=== PATIENT | female | born 2000 | race Caucasian/White ===

== ENCOUNTER 2024-04-14 17:40 | Emergency (ER) | payer OTHER, SELFPAY ==
[2024-04-14 17:54] VITALS: BP 119/61; PULSE 87; RESP 16; TEMP 36.6; O2SAT 100
--- NOTE | 2024-04-14 18:08 | ED.URI ---
HPI - URI/Sore Throat General Chief Complaint: Upper Respiratory Infection Stated Complaint: strep Time Seen by Provider: 04/14/24 17:46 History of Present Illness HPI Narrative: Patient presents with a sore throat. Fatigue and body aches no fever no cough no shortness of breath no chest pain no trouble swallowing no drooling. Related Data Allergies Allergy/AdvReac Type Severity Reaction Status Date / Time amoxicillin Allergy Swelling Verified 04/14/24 18:11 of Lip/Tongue/Throat Review of Systems Review of Systems: CONSTITUTIONAL: Denies chills, or sweats. Reports fever and generalized body aches EYES: Denies visual changes, redness, or discharge. ENT: Denies otalgia. Reports nasal congestion runny nose and sore throat CARDIOVASCULAR: Denies chest pain, palpitations, or edema. RESPIRATORY: Denies dyspnea. Reports occasional cough GASTROINTESTINAL: Denies abdominal pain, nausea, vomiting, or diarrhea. GENITOURINARY: Denies dysuria or hematuria. SKIN: Denies rash or itching. MUSCULOSKELETAL: Denies back pain, joint pain, or myalgia. Reports generalized body aches NEUROLOGIC: Denies headache, numbness, or weakness. PSYCHIATRIC: Denies anxiety or depression. PMFSH Comments At time of signature, agree with nursing past medical, surgical, social and family history. There is no relevant family history pertinent to the presenting complaint Exam Narrative: The patient is a well-developed, well-nourished in no acute distress. SKIN: Skin is warm and dry without erythema, swelling or exudate. There is good turgor. No tenting. HEAD: Atraumatic. Normocephalic. No temporal or scalp tenderness. EYES: Moist and bright. Sclera and conjunctivae normal. No discharge. PERRLA. Extraocular motions intact. Gross visual acuity intact. EARS: Pinna is normal shape and contour. Clear external auditory canals. TM pearly luis with good cone of light, no erythema or suppuration. Bilateral cerumen noted no gross hearing deficit. NOSE: pink, moist mucosa with good air movement. Clear rhinorrhea without nasal flaring. Septum midline. Mouth: moist mucous membranes. THROAT; mild erythema noted to posterior oropharynx with moderate postnasal drainage. With exudate no ulceration.. Uvula midline. Normal movement of soft palate. NECK: Supple and nontender with full range of motion without discomfort. No meningeal signs. LUNGS: Equal and bilateral breath sounds without wheezes, rales or rhonchi. CHEST: The chest wall is without retractions or use of accessory muscles. HEART: Has a regular rate and rhythm without murmur, gallops, click or rub. ABDOMEN: Soft, nontender with positive active bowel sounds. No rebound tenderness. EXTREMITIES: Without cyanosis, clubbing or edema. Equal 2+ distal pulses and 2 second capillary refill noted. NEUROLOGIC: alert, active, . The patient moves all extremities with normal muscle strength. Normal muscle tone is noted. Normal coordination is noted. NO focal neurological findings noted. Course Course Level of Care: Express Care Visit Vital Signs Vital signs: Vital Signs Temperature 36.6 C 04/14/24 17:54 Pulse Rate 87 04/14/24 17:54 Respiratory Rate 16 04/14/24 17:54 Blood Pressure 119/61 04/14/24 17:54 Pulse Oximetry 100 04/14/24 17:54 Temperature 36.6 C 04/14/24 17:54 Pulse Rate 87 04/14/24 17:54 Respiratory Rate 16 04/14/24 17:54 Blood Pressure 119/61 04/14/24 17:54 Pulse Oximetry 100 04/14/24 17:54 Discharge Plan Discharge Clinical Impression: Pharyngitis, Exudative pharyngitis Patient Disposition: Home, Self-Care Condition: Stable Instructions: Antibiotic Form, Tonsillitis (ED) Additional Instructions: Increase fluids especially juices and water Skax-cal-[id number] cough and cold medicine of your choice for your symptoms Salt water gargles, throat lozenges or throat sprays as desired change toothbrush in 3-5 days Antibiotic as directed--finished the medication It may take the antibiotic 2-3 days to control the fever/symptoms -If you have any worsening of symptoms or any other concerns please go to the ED immediately. Prescriptions: New dexamethasone 4 mg tablet 8 mg PO ONCE Qty: 2 0RF cephalexin 500 mg tablet 500 mg PO Q12H 10 Days Qty: 20 0RF Follow-up/Referrals: Sharhiar,Carola Garcia APN [Primary Care Provider] - Stand Alone Forms: Work/School Release IP
[2024-04-14 18:10] VITALS: BP 119/61; PULSE 87; RESP 16; TEMP 36.6; O2SAT 100
[2024-04-14 18:18] LABS: EDSTREPNEGPOS1 Negative (Negative)
== END 2024-04-14 18:21 | disposition home or self-care (01) ==
PROVIDERS: Emergency Provider Nurse Practitioner Family; PCP Nurse Practitioner Family
DX: J02.9 Acute pharyngitis, unspecified (principal)
CPT/HCPCS: 87081; 87880; 99203; G0463

== ENCOUNTER 2024-09-21 09:01 | Emergency (ER) | payer OTHER, SELFPAY ==
--- OUTSIDE RECORDS SUMMARY | 2024-09-21 09:04 | XMS_ITS | Clinical Summary ---
Author Organization [facility] Address [address] [place] [address] Phone Care Team Providers Care Steward Dishwasher Name Role Phone Provider, None Primary Care Provider Unavailabl e Allergies Active Allergy Reactions Criticality Noted Date Comments Amoxicillin Vomiting 09/04/2017 Penicillins Swelling 09/19/2019 Medications ondansetron (ZOFRAN) 4 MG Tablet Take 1 Tab by mouth every 8 hours as needed for Nausea. 10 Tab 7 Active HYDROcodone-raven taminophen (NORCO) 5-325 MG Tablet Take 1-2 Tabs by mouth every 4 hours as needed for Pain. 20 Tab 8 Active ibuprofen (MOTRIN) 600 MG Tablet Take 1 Tab by mouth every 8 hours as needed for Mild or more severe pain. 20 Tab 9 Active cyclobenzaprine (FLEXERIL) 10 MG Tablet Take 0.5 Tabs by mouth 3 times daily as needed for Muscle spasms. 10 Tab 9 Active albuterol 108 (90 Base) MCG/ACT Aerosol Solution take 2 Puffs by inhalation every 4 hours as needed for Cough. 1 Inhaler 9 Active ketorolac (TORADOL) 10 MG Tablet Take 1 Tab by mouth every 6 hours as needed for Moderate or more severe pain. 20 Tab 0 Active Social History Tobacco Use Types Packs/Day Years Used Date Smoking Tobacco: Never Smokeless Tobacco: Never Alcohol Use Standard Drinks/Week Comments No 0 (1 standard drink = 0.6 oz pur e alcohol) Comments No Sex and Gender Information Value Date Recorded Sex Assigned at Not on file Legal Sex Female 9:45 PM CDT Gender Identity Not on file Sexual Orientation Not on file Last Filed Vital Signs Vital Sign Reading Time Taken Comments Blood Pressure 125/98 09/19/2019 8:52 AM CDT Pulse 97 09/19/2019 10:02 AM CDT Temperature 36.2 C (97.2 F) 09/19/2019 10:02 AM CDT Respiratory Rate 18 09/19/2019 8:50 AM CDT Oxygen Saturation 100% 09/19/2019 8:50 AM CDT Inhaled Oxygen Concentration - - Weight 59 kg (130 lb) 09/19/2019 8:50 AM CDT Height 165.1 cm (5' 5 ) 09/19/2019 8:50 AM CDT Body Mass Index 21.63 09/19/2019 8:50 AM CDT Plan of Treatment Health Maintenance Due Date Last Done Comments Hepatitis C Virus (HCV) Screening 1999 Influenza Immunization (#1) 2024 10/0 06/2012, 02/23/2012, 03/25/2011, Additional history exists SARS-COV-2 Immunization ( season) 2024 Respiratory Syncytial Virus (RSV) Immunization (Adult) (1 - 1-dose 75+ series) 08/09/2074 Hepatitis B Immunization Completed 000, 1999, 1999 Pneumococcal Immunization Combined Aged Out 12/12/2000, 09/30/2000 No longer eligibl e based on patient's age to complete this topic DTaP/Tdap/Td Immunization Discontinued 2010, 11/19/2004, 12/12/2000, Additional history exists TdaP Immunization Completed 01/25/2011 Meningococcal Immunization (ACWY) Aged Out 02/11/2011 No longer eligible based on patient's age to complete this topic Human Papillomavirus (HPV) Immunization Completed 07/05/2013, 04/27/2011, 02/11/2011 Rotavirus Immunization Aged Out No lo nger eligible based on patient's age to complete this topic Insurance [facility] [place] [place] [id number] [place] [address] Care Teams Steward Dishwasher Relationship Specialty Start Date End Date Provider, None MS PCP - General 07/13/18
--- OUTSIDE RECORDS SUMMARY | 2024-09-21 09:05 | XMS_ITS | Data Portability ---
Author Organization [facility] GABINOAntonio Address [address] [place] [address] Care Team Providers [employer] Name Role Phone ELIZABETH, CAROLA Primary Care Provider Assessment No assessment recorded. Plan of Treatment Reminders Order Date Submit Date Provider Last Modified By Organization Details Last Modified Time Details Appointments None recorded . Lab influenz a virus A + B + SARS-CoV -2 (COVID19 ) Ag panel, rapid IA, upper respirat ory specimen 2023 024 In-Office Order, Internal Use Only DO Not Attach Compendium DO Not Attach Compendium, Do Not Delete/merge, [id number] 4 12:31:10 TSH, ultra-se nsitive, serum 2023 024 HERRERA Dinero, [address], [address], [place], [address], 4 03:08:35 CMP, serum or plasma 2023 024 HERRERA Dinero, [address], [address], [place], [address], 4 03:08:38 lipid panel, serum 2023 024 HERRERA Dinero, [address], [address], [place], [address], 4 03:08:36 CBC 2023 024 HERRERA Dinero, [address], [address], [place], [address], 4 03:08:39 vitamin B12 + folate, serum or blood 2023 024 [facility], [address] [facility], [address], [place], [address], 4 03:08:36 iron + total iron-bin ding capacity (TIBC), serum 2023 024 [facility], [address] [facility], [facility] [address], [place], [address], 4 03:08:37 ferritin , serum or plasma 2023 024 [facility], [address] [facility], [facility] [address], [place], [address], 4 03:08:39 inflamma tion panel, serum or plasma 2023 024 [facility], [address] [facility], [facility] [address], [place], [address], 4 03:08:33 ESR (erythro cyte sediment ation rate), blood 2023 024 [facility], [address] [facility], [facility] [address], [place], [address], 4 03:08:40 HIV 1 + 2, meaningf ul use set 2023 024 [facility], [address] [facility], [facility], [place], [address], 4 03:08:41 Referral otolaryn gologist referral 2022 023 [email or web address] Kim Douglas DO, 4 [facility] , [address], [address], [place], [address], 4 09:54:47 Procedures None recorded . Surgeries None recorded . Imaging None recorded . Medication Orders Bactrim DS 800 mg-160 mg tablet 2023 024 [facility], [address] [place] [address], [address], 4 15:56:05 ibuprofe n 800 mg tablet [address] [facility], [address] [place] [address], [address], 4 09:02:38 triamcin olone acetonid e 0.5 % topical cream 2023 024 [facility], [address] [place] [address], [address], 4 15:27:08 doxycycl ine hyclate 100 mg capsule 2023 024 [facility], [address] [place] [address], [address], 4 16:07:18 Zithroma x Z-Koffi 250 mg tablet 2023 024 [email or web address] [facility], [address] [place] [address], [address], 4 15:26:35 ibuprofe n 800 mg tablet 2022 023 [facility], [address] [place] [address], [address], 3 15:20:47 doxycycl ine hyclate 100 mg capsule 2022 023 [email or web address] [facility], [address] [place] [address], [address], 4 16:07:07 fluticas one propiona te 50 mcg/actu ation nasal spray,quach spension [address] [facility] [address] [facility], [address] [place] [address], [address], 16:40:54 Patient TargetsNo targets recorded. Patient Instructions Encounter Date Encounter Id Patient Instructions Last Modified By Organization Details Last Modified Time 03/10/2023 [id number] A healthy lifestyle: care instructions Not available 03/10/2023 15:20:36 chronic sinusitis: care instructions Not available 03/10/2023 15:20:36 Take all antibiotics prescribed to you. If any fever or increase in pain, call/return to office. Not available 03/10/2023 15:09:28 f/u 6 months Not available 10/2022 15:09:28 10/13/2023 [id number] chronic sinusitis: care instructions Not available 10/13/2023 17:05:01 Take all antibiotics prescribed to you. If any fever or increase in pain, call/return to office. Not available 10/13/2023 17:04:31 schedule annual exam Not available 10/13/2023 17:04:27 10/25/2023 [id number] A healthy lifestyle: care instructions Not available 10/25/2023 16:25:36 learning about vaping Not available 10/25/2023 16:25:36 Increase intake of fresh fruits, and vegetables. Avoid packaged foods and fast foods. Follow a low salt diet, drink at least 8-10 8oz glasses of water a day, exercise most days of the week. Take all medications as prescribed. Keep appointments with PCP and all specialists. Not available 10/26/2023 09:03:32 follow up as needed, yearly to keep established with provider Not available 10/26/2023 09:03:37 11/28/2023 [id number] upper respirator y infection (cold): care instructions Not available 11/28/2023 12:31:10 Mucinex and othe r OTC cold/cough remedies are fine to take, increase fluids and have good handwashing. Get plenty of rest. Not available 11/28/2023 12:31:21 follow up as needed Not available 11/28/2023 12:31:15 04/02/2024 [id number] Take all antibiotics prescribed to you. If any fever or increase in pain, call/return to office. Not available 04/02/2024 15:57:36 follow up as needed Not available 04/02/2024 15:57:42 Reason for Referral [employer] Referral fo r Chronic sinusitis Referring Physician: Carola Elizabeth, Family Medicine, Encounter Date: 03/10/2023 Results Created Date Observation Date Name Description Value Unit Range Abnormal Flag Note LastModifiedBy Organization Detail LastModifiedTime 10/25/1910/25/2023 LIPID PANEL cholesterol, total 118 mg/dL 100-19 9 Not Available [facility] Department [address] [place], [address], 10/26/2023 03:08:36 10/25/1910/25/2023 LIPID PANEL triglyceride s 80 mg/dL 0-149 Not Available [facility] [address] [place], [address], 10/26/2023 03:08:36 10/25/19 24 10/25/2023 LIPID PANEL HDL cholesterol 39 mg/dL 40-999 below low normal Not Available [facility] Department [address] [place], [address], 10/26/2023 03:08:36 10/25/19 24 10/25/2023 LIPID PANEL VLDL cholesterol alyssia 16 mg/dL 5-40 Not Available [facility] Department [address] [place], [address], 10/26/2023 03:08:36 10/25/19 24 10/25/2023 LIPID PANEL LDL chol calc ([facility]) 73 mg/dL 0-99 Not Available [facility] Department [address] [place], [address], 10/26/2023 03:08:36 10/25/19 24 10/25/2023 COMP. METAB OLIC PANEL (14) glucose 109 mg/dL 70-99 above high normal Not Available [facility] Department [address] [place] [address], [address], 10/26/2023 03:08:38 10/25/19 24 10/25/2023 COMP. METAB OLIC PANEL (14) BUN 13 mg/dL 6-20 Not Available [facility] Department [address] [place] [address], [address], 10/26/2023 03:08:38 10/25/19 24 10/25/2023 COMP. METAB OLIC PANEL (14) creatinine 0.79 mg/dL 0.76-1 .27 Not Available [facility] Department [address] [place] [address], [address], 10/26/2023 03:08:38 10/25/19 24 10/25/2023 COMP. METAB OLIC PANEL (14) eGFR 107 >=60 Units for eGFR value s are mL/mi n/1.7 3 The eGFR Calcu latio n has not been valid ated for patie nts under the age of 18. If test resul ts are displ ayed for a patie nt under the age of 18, disre connie that value . Not Available [facility] Department [address] [place] [address], [address], 10/26/2023 03:08:38 10/25/19 24 10/25/2023 COMP. METAB OLIC PANEL (14) BUN/creatini ne ratio 16 9-23 Not Available [facility] Department [address] [place], [address], 10/26/2023 03:08:38 10/25/19 24 10/25/2023 COMP. METAB OLIC PANEL (14) sodium 140 mmol/ L 134-14 4 Not Available [facility] Department [address] [place] [address], [address], 10/26/2023 03:08:38 10/25/19 24 10/25/2023 COMP. METAB OLIC PANEL (14) potassium 4.3 mmol/ L 3.5-5. 2 Not Available [facility] Department [address] [place] [address], [address], 10/26/2023 03:08:38 10/25/19 24 10/25/2023 COMP. METAB OLIC PANEL (14) chloride 101 mmol/ L 96-106 Not Available [facility] Department [address] [place] [address], [address], 10/26/2023 03:08:38 10/25/19 24 10/25/2023 COMP. METAB OLIC PANEL (14) carbon dioxide, total 24 mmol/ L 20-29 Not Available [facility] Department [address] [place] [address], [address], 10/26/2023 03:08:38 10/25/19 24 10/25/2023 COMP. METAB OLIC PANEL (14) calcium 9.9 mg/dL 8.7-10 .2 Not Available [facility] Department [address] [place] [address], [address], 10/26/2023 03:08:38 10/25/19 24 10/25/2023 COMP. METAB OLIC PANEL (14) protein, total 7.6 g/dL 6.0-8. 5 Not Available [facility] Department [address] [place] [address], [address], 10/26/2023 03:08:38 10/25/19 24 10/25/2023 COMP. METAB OLIC PANEL (14) albumin 4.8 g/dL 4.0-5. 0 Not Available [facility] Department [address] [place] [address], [address], 10/26/2023 03:08:38 10/25/19 24 10/25/2023 COMP. METAB OLIC PANEL (14) globulin, total 2.8 g/dL 1.5-4. 5 Not Available [facility] Department [address] [place] [address] [place], [address], 10/26/2023 03:08:38 10/25/19 24 10/25/2023 COMP. METAB OLIC PANEL (14) A/G ratio 2.0 1.2-2. 2 Not Available [facility] Department [address] [place] [address], [address], 10/26/2023 03:08:38 10/25/19 24 10/25/2023 COMP. METAB OLIC PANEL (14) bilirubin, total 0.7 mg/dL 0.0-1. 2 Not Available [facility] Department [address] [place] [address], [address], 10/26/2023 03:08:38 10/25/19 24 10/25/2023 COMP. METAB OLIC PANEL (14) alkaline phosphatase 67 IU/L 44-121 Not Available [facility] Department [address] [place] [address], [address], 10/26/2023 03:08:38 10/25/19 24 10/25/2023 COMP. METAB OLIC PANEL (14) AST (SGOT) 11 IU/L 0-40 Not Available [facility] Department [address] [place] [address], [address], 10/26/2023 03:08:38 10/25/19 24 10/25/2023 COMP. METAB OLIC PANEL (14) ALT (SGPT) 8 IU/L 0-32 Not Available [facility] Department [address] [place] [address], [address], 10/26/2023 03:08:38 10/25/19 24 10/25/2023 CBC, NO DIFFE RENTI AL/PL ATELE T WBC 8.4 x10e3 /uL 3.4-10 .8 Not Available [facility] Department [address] [place] [address], [address], 10/26/2023 03:08:39 10/25/19 24 10/25/2023 CBC, NO DIFFE RENTI AL/PL ATELE T RBC 4.53 x10e6 /uL 3.77-5 .28 Not Available [facility] Department [address] [place], [address], 10/26/2023 03:08:39 10/25/19 24 10/25/2023 CBC, NO DIFFE RENTI AL/PL ATELE T hemoglobin 14.8 g/dL 11.1-1 5.9 Not Available [facility] Department [address] [place], [address], 10/26/2023 03:08:39 10/25/19 24 10/25/2023 CBC, NO DIFFE RENTI AL/PL ATELE T hematocrit 44.1 % 34.0-4 6.6 Not Available [facility] Department [address] [place], [address], 10/26/2023 03:08:39 10/25/19 24 10/25/2023 CBC, NO DIFFE RENTI AL/PL ATELE T MCV 97 fL 79-97 Not Available [facility] Department [address] [place], [address], 10/26/2023 03:08:39 10/25/19 24 10/25/2023 CBC, NO DIFFE RENTI AL/PL ATELE T MCH 32.7 pg 26.6-3 3.0 Not Available [facility] Department [address] [place], [address], 10/26/2023 03:08:39 10/25/19 24 10/25/2023 CBC, NO DIFFE RENTI AL/PL ATELE T MCHC 33.6 g/dL 31.5-3 5.7 Not Available [facility] Department [address] [place], [address], 10/26/2023 03:08:39 10/25/19 24 10/25/2023 CBC, NO DIFFE RENTI AL/PL ATELE T RDW 11.9 % 11.5-1 4.5 Not Available [facility] Department [address] [place], [address], 10/26/2023 03:08:39 10/25/19 24 10/25/2023 CBC, NO DIFFE RENTI AL/PL ATELE T NRBC 0 % 0-0 Not Available [facility] Department [address] [place], [address], 10/26/2023 03:08:39 10/25/19 24 10/26/2023 CARRIE W/REF IRIS+R F QN+CR P+CCP (... CARRIE direct NEGATI VE negati ve Not Available [facility] ([facility]) [address] [place], [address], 11/04/2023 03:08:33 10/25/19 24 10/26/2023 CARRIE W/REF IRIS+R F QN+CR P+CCP (... rheumatoid factor (rf) <10.0 IU/mL <14.0 Not Available [facility] ([facility]) [address] [place], [address], 11/04/2023 03:08:33 10/25/19 24 10/26/2023 CARRIE W/REF IRIS+R F QN+CR P+CCP (... C-reactive protein, quant 2 mg/L 0-10 Not Available [facility] ([facility]) [address] [place], [address], 11/04/2023 03:08:33 10/25/19 24 10/26/2023 CARRIE W/REF IRIS+R F QN+CR P+CCP (... anti-ccp Ab, IgG/IgA 5 units 0-19 Negat camron <20 Weak posit camron 20 - 39 Moder ate posit camron 40 - 59 Stron g posit camron >59 Not Available [facility] ([facility]) [address] [place], [address], 11/04/2023 03:08:33 10/25/19 24 11/03/2023 CARRIE W/REF IRIS+R F QN+CR P+CCP (... hla-B27 NEGATI VE HLA-B *27 Negat camron B27 allel e inter preta tion for all loci based on IMGT/ HLA datab ase versi on . 0 This test was devel oped and its perfo rmanc e maurice cteri stics deter mined by [facility]. It has not been clear ed or appro jefferson by the Food and Drug Admin istra tion. [facility] CLIA ID Sara galindo [id number] This test was perfo rmed using Polym erase Chain React ion (PCR) and Seque nce Speci fic Oligo nucle otide Probe s (SSOP ) techn ique. Seque nce Based Typin g (SBT) may be used as a suppl ement al jayyo d when neces zaire. If you have quest ions, pleas e call HLA custo michelle servi ce at [phone] or email at [facility] [email or web address]. Not Available [facility] ([facility]) [address] [facility], [place], [address], 11/04/2023 03:08:33 10/25/19 24 10/26/2023 TSH RFX ON ABNOR MAL TO FREE T4 TSH 1.040 uIU/m L 0.450- 4.500 Not Available [facility] ([facility]) [address] [facility], [place], [address], 11/04/2023 03:08:35 10/25/19 24 10/26/2023 VITAM IN B12 AND FOLAT E vitamin B12 554 pg/mL 232-12 45 Not Available [facility] ([facility]) [address] [facility], [place], [address], 11/04/2023 03:08:36 10/25/19 24 10/26/2023 VITAM IN B12 AND FOLAT E folate (folic acid), serum 17.2 NG/mL >3.0 A serum folat e gómez ntrat ion of less than 3.1 ng/mL is consi dered to repre sent clini alyssia defic iency . Not Available [facility] ([facility]) [address] [place], [address], 11/04/2023 03:08:36 10/25/19 24 10/26/2023 IRON AND TIBC iron bind.cap.(TI BC) 355 ug/dL 250-45 0 Not Available [facility] ([facility]) [address] [place], [address], 11/04/2023 03:08:37 10/25/19 24 10/26/2023 IRON AND TIBC UIBC 258 ug/dL 131-42 5 Not Available [facility] ([facility]) [address] [place], [address], 11/04/2023 03:08:37 10/25/19 24 10/26/2023 IRON AND TIBC iron 97 ug/dL 27-159 Not Available [facility] ([facility]) [address] [place], [address], 11/04/2023 03:08:37 10/25/19 24 10/26/2023 IRON AND TIBC iron saturation 27 % 15-55 Not Available [facility] ([facility]) [address] [place], [address], 11/04/2023 03:08:37 10/25/19 24 10/26/2023 MAC TIN ferritin 75 NG/mL 15-150 Not Available [facility] ([facility]) [address] [place], [address], 11/04/2023 03:08:39 10/25/19 24 10/26/2023 SEDIM ENTAT ION RATE- WESTE RGREN sedimentatio n rate-westerg rodrigo 5 mm/HR 0-32 Not Available [facility] ([facility]) [address] [facility], [place], [address], 11/04/2023 03:08:40 10/25/1910/27/2023 HIV AB/P2 4 AG WITH REFLE X HIV Ab/P24 Ag screen Non Reacti ve nonrea ctive HIV Negat camron HIV-1 /HIV- 2 antib odies and HIV-1 p24 antig en were NOT detec irvin. There is no labor atory evide nce of HIV infec tion. Not Available [facility] ([facility]) [address] [facility], [place], [address], 11/04/2023 03:08:41 11/28/1911/28/2023 influ sarah virus A + B + SARS- CoV-2 (COVI D19) Ag panel , rapid IA, upper respi rator y speci men Flu A negati ve Not Available In-Office Order Internal Use Only DO Not Attach Compendium DO Not Attach Compendium, Do Not Delete/merge, [id number] 11/28/2023 12:21:46 11/28/19 24 11/28/2023 influ sarah virus A + B + SARS- CoV-2 (COVI D19) Ag panel , rapid IA, upper respi rator y speci men Flu B negati ve Not Available In-Office Order Internal Use Only DO Not Attach Compendium DO Not Attach Compendium, Do Not Delete/merge, [id number] 11/28/2023 12:21:46 11/28/19 24 11/28/2023 influ sarah virus A + B + SARS- CoV-2 (COVI D19) Ag panel , rapid IA, upper respi rator y speci men Rapid SARS CoV 2 Ag, QL IA, respiratory specimen negati ve Not Available In-Office Order Internal Use Only DO Not Attach Compendium DO Not Attach Compendium, Do Not Delete/merge, [id number] 11/28/2023 12:21:46 Result Notes None recorded. Problems Name Problem SNOMED Code Status Onset Date Resolution Date Notes Provider Name and Address Organization Details Recorded Time Irritable bowel syndrome characteriz ed by alternating bowel habit 341637079 Active 2021 Carola Elizabeth APN, FNP-C Attn: Mallory rajani,[address] [facility], [place], [place], [address] [place] [address] 2, [facility] 2 10:35:40 Electronic cigarette user 325889253 Active 2021 Carola Elizabeth APN LABORATORY TESTER-C Attn: Mallory rajani,[address] [facility], [place], [place], [address] [place] [address] 2, [facility] - [facility] 2 10:35:41 Dysfunction of eustachian tube 29573161 Active 2021 Carola Elizabeth APN LABORATORY TESTER-C Attn: Mallory rajani,[address] [facility], [place], [address] [place] [address] 2, [facility] 2 10:43:43 History of migraine 741909964 Active 2021 Carola Elizabeth APN, FNP-C Attn: Mallory gerard,[address] [facility], [place], [address] [place] [address] 2, [facility] 2 17:39:36 Atopic dermatitis 88584325 Active 2022 Carola Elizabeth APN, FNP-C Attn: Mallory rajani,[address] [facility], [place], [address] [place] [address] 2, [facility] 3 16:21:56 Gastroenter itis 94708794 Completed 10/15/2021 Carola Elizabeth APN, FNP-C Attn: Mallory rajani,[address] [facility], [place], [address] [place] [address] 2, [facility] - [facility] 2 10:27:51 Otitis media 52910286 Completed 10/15/2021 Carola Elizabeth APN, FNP-C Attn: Mallory rajani,[address] [facility], [place], [address] [place] [address] 2, [facility] - [facility] 2 10:27:36 Abdominal pain 34301884 Completed 10/15/2021 Carola Elizabeth APN, FNP-C Attn: Mallory gerard,[address] [facility], [place], [address], [place] - [facility] 2 10:27:48 Acute sinusitis 11130147 Completed 10/15/2021 Carola Elizabeth APN, FNP-C Attn: Mallory g,[address] [facility], [place], [address], [place] - [facility] 2 10:27:41 Asthmatic bronchitis 735142101 Completed 10/15/2021 Carola Elizabeth APN, FNP-C Attn: Accountin g,[address] [facility], [place], [address], [place] [facility] 2 10:27:58 Dermatophyt osis 68114537 Completed 10/15/2021 Carola Elizabeth APN, FNP-C Attn: Accountin g,[address] [facility], [place], [address], [place] - [facility] 2 10:27:33 Problem Notes None recorded. Medical Equipment None Reported. Allergies Allergen ID Allergen Name Allergen Category Reaction Reaction Severity Criticality Documentation Date Start Date Code Code System Note Provider Name and Address Organization Details Recorded Time 566288 amoxicill in medicatio n hives moderate Not available 10/15/2021 723 RxNorm Not Available Not Available Not Available 996599 Product containin g penicilli n (product) medicatio n hives moderate Not available 10/15/2021 62219 8001 SNOMED Not Available Not Available Not Available 382100 cephalexi n medicatio n hives moderate Not available 07/13/20222022 2231 RxNorm diarr hea and emesi s Not Available Not Available Not Available Medications Name Sig Start Date Stop Date Status Note LastModified by Organization Details LastModified Time amoxicilli n 500 mg capsule Take 2 capsules twice a day by oral route with meals for 10 days. 10/15 completed Not Available Not Available Not Available Aviane 0.1 mg-20 mcg tablet TAKE 1 TABLET BY MOUTH ONCE DAILY 07/08 completed Not Available Not Available Not Available doxycyclin e hyclate 100 mg capsule Take 1 capsule twice a day by oral route for 7 days. 10/244 completed Not Available Not Available Not Available clindamyci n HCl 300 mg capsule TAKE 1 CAPSULE BY MOUTH THREE TIMES DAILY FOR 10 DAYS 10/12 completed Not Available Not Available Not Available triamcinol one acetonide 0.5 % topical cream APPLY A THIN LAYER TO THE AFFECTED AREA(S) BY TOPICAL ROUTE 2 TIMES PER DAY 04/02 completed Not Available Not Available Not Available Tinactin 1 % topical cream Apply by topical route to ring worm 2x daily 1m. 04/30 completed Not Available Not Available Not Available azithromyc in 250 mg tablet TAKE 2 TABLETS BY MOUTH ON DAY 1, AND THEN TAKE 1 TABLET BY MOUTH ONCE A DAY ON DAY 2 THROUGH DAY 5 04/02 completed Not Available Not Available Not Available ibuprofen 800 mg tablet Take 1 tablet 3 times a day by oral route as needed. 2023 active Not Available Not Available Not Avai lable Lidocaine Viscous 2 % mucosal solution 10/15 completed Not Available Not Available Not Available sulfametho xazole 400 mg-trimeth oprim 80 mg tablet Take 2 tablets twice a day by oral route with meals for 10 days. active Not Available Not Available No t Available sumatripta n 100 mg tablet take by mouth one tablet at onset of headache , may repeat in 2 hours if headache not resolved 03/10 completed Not Available Not Available Not Available ondansetro n HCl 8 mg tablet Take 1 tablet every 8 hours by oral route as needed. 07/08 completed Not Available Not Available Not Available prednisone 20 mg tablet 07/08 completed Not Available Not Available Not Available terconazol e 0.8 % vaginal cream INSERT 1 APPLICAT ORFUL AT BEDTIME FOR THREE NIGHTS 10/12 completed Not Available Not Available Not Available sumatripta n 50 mg tablet take by mouth one tablet at onset of headache , may repeat in 2 hours if headache not resolved 03/10 completed Not Available Not Available Not Available metronidaz ole 500 mg tablet TAKE 1 TABLET BY MOUTH THREE TIMES DAILY FOR 20 DOSES 03/10 completed Not Available Not Available Not Available tretinoin 0.05 % topical cream APPLY TOPICALL Y NIGHTLY DIRECTED 04/02 completed Not Available Not Available Not Available valacyclov ir 500 mg tablet TAKE 1 TABLET BY MOUTH ONCE DAILY 10/12 completed Not taking Not Available Not Available Not Available triamcinol one acetonide 0.1 % topical cream active Not Available Not Available Not Available ketorolac 10 mg tablet TAKE 1 TABLET BY MOUTH EVERY 6 HOURS NEEDED FOR PAIN 03/10 completed prn Not Available Not Available Not Available amitriptyl ine 10 mg tablet active Not Available Not Available Not Available doxycyclin e monohydrat e 100 mg capsule active Not Available Not Available Not Available cephalexin 500 mg capsule Take 1 capsule twice a day by oral route for 10 days. active Not Available Not Available No t Available ranitidine 150 mg tablet Take 1 tablet twice a day by oral route with meals for 30 days. active Not Available Not Available No t Available dexamethas one 4 mg tablet active Not Available Not Available Not Available ibuprofen 400 mg tablet active Not Available Not Available Not Available mupirocin 2 % topical ointment active Not Available Not Available Not Available methylpred nisolone 4 mg tablets in a dose pack TAKE BY MOUTH DIRECTED ON INSIDE OF PACKAGE 04/02 completed Not Available Not Available Not Available albuterol sulfate HFA 90 mcg/actuat ion aerosol inhaler INHALE 1 TO 2 PUFFS BY MOUTH EVERY 4 TO 6 HOURS NEEDED. RINSE MOUTH OUT AFTER USE. 03/10 completed Not Available Not Available Not Available Naprosyn 500 mg tablet take 1 tab q 8-10 hr prn for bad headache 10/15 completed Not Available Not Available Not Available ondansetro n 4 mg disintegra ting tablet DISSOLVE 1 TABLET ON THE TONGUE UP TO THREE TIMES DAILY NEEDED FOR NAUSEA 10/15 completed Not Available Not Available Not Available cefdinir 300 mg capsule TAKE 1 CAPSULE BY MOUTH TWICE DAILY FOR 6 DAYS 03/10 completed Not Available Not Available Not Available fluticason e propionate 50 mcg/actuat ion nasal spray,susp ension USE 1 SPRAY(S) IN EACH NOSTRIL TWICE DAILY 10/12 completed Not Available Not Available Not Available doxycyclin e hyclate 100 mg tablet 10/15 completed Not Available Not Available Not Available dicyclomin e 10 mg capsule Take 1 capsule 3 times a day by oral route as needed. 03/10 completed Not Available Not Available Not Available amoxicilli n 500 mg-potassi um clavulanat e 125 mg tablet 10/15 completed Not Available Not Available Not Available neomycin 3.5 mg/g-polym yxin B 10,000 unit/g-dex ameth 0.1 % eye oint 10/15 completed Not Available Not Available Not Available neomycin-p olymyxin-h ydrocort 3.5 mg-10,000 unit/mL-1 % ear drops,susp INSTILL 4 DROPS INTO AFFECTED EAR(S) BY OTIC ROUTE 3 TIMES PER DAY x 7 days 10/12 completed Not using Not Available Not Available Not Available Bactrim DS 800 mg-160 mg tablet Take 1 tablet every 12 hours by oral route for 7 days. 2023 active Not Available Not Available Not Avai lable Mononessa (28) 0.25 mg-35 mcg tablet active Not Available Not Available Not Available azelaic acid 15 % topical gel WASH AND PAT DRY AFFECTED AREA OF SKIN. GENTLY AND THOROUGH LY MASSAGE A THIN FILM TWICE DAILY TO AFFECTED AREA IN THE MORNING AND EVENING 10/12 completed Not Available Not Available Not Available Lo Loestrin Fe 1 mg-10 mcg (24)/10 mcg (2) tablet active Not Available Not Available Not Available Vitals Date Recorded Body height Body mass index (BMI) Body weight Oxygen saturation Oxygen saturation in Arterial blood by Pulse oximetry Heart rate Respiratory rate Body temperature Systolic blood pressure Diastolic blood pressure Provider Name and Address Organization Details Last Updated DateTime 3 163.83 cm 26.2 kg/m2 02324.8 2 g 98 % 98 % 98 /min 16 /min 98.5 [degF] 110 mm[Hg] 68 mm[Hg] Madisyn Waldron [facility] 3 15:00:32 Date Recorded Body height Body mass index (BMI) Body weight Oxygen saturation Oxygen saturation in Arterial blood by Pulse oximetry Heart rate Respiratory rate Body temperature Systolic blood pressure Diastolic blood pressure Provider Name and Address Organization Details Last Updated DateTime 4 163.83 cm 25.4 kg/m2 62299.2 1 g 98 % 98 % 88 /min 16 /min 98.7 [degF] 107 mm[Hg] 74 mm[Hg] Amanda Grigsby MA [facility] 4 16:35:51 Date Recorded Body height Body mass index (BMI) Body weight Oxygen saturation Oxygen saturation in Arterial blood by Pulse oximetry Respiratory rate Body temperature Heart rate Systolic blood pressure Diastolic blood pressure Provider Name and Address Organization Details Last Updated DateTime 4 163.83 cm 25.8 kg/m2 54506.5 5 g 97 % 97 % 16 /min 98.2 [degF] 90 /min 106 mm[Hg] 73 mm[Hg] Amanda Grigsby MA [facility] 4 16:09:00 Date Recorded Body height Body mass index (BMI) Body weight Oxygen saturation Oxygen saturation in Arterial blood by Pulse oximetry Respiratory rate Body temperature Heart rate Systolic blood pressure Diastolic blood pressure Provider Name and Address Organization Details Last Updated DateTime 4 163.83 cm 25.7 kg/m2 13478.0 4 g 98 % 98 % 16 /min 98.6 [degF] 64 /min 102 mm[Hg] 72 mm[Hg] NOEMI Gloria [facility] 4 12:13:36 Date Recorded Body height Body mass index (BMI) Body weight Oxygen saturation Oxygen saturation in Arterial blood by Pulse oximetry Respiratory rate Body temperature Heart rate Systolic blood pressure Diastolic blood pressure Provider Name and Address Organization Details Last Updated DateTime 4 163.83 cm 26.9 kg/m2 39840.1 9 g 98 % 98 % 16 /min 97.5 [degF] 82 /min 114 mm[Hg] 76 mm[Hg] NOEMI Gloria [facility] 4 15:29:09 Social History Question Answer Notes LastModified by Organizat ion Details LastModified Time Tobacco Smoking Status Never Smoker Kiki Clemens MA [facility], [facility] 09/11/2014 16:13:33 What Is Your Level Of Alcohol Consumption? Occasional Information not available 10/15/2021 Are You Blind Or Do You Have Difficulty Seeing? No Information not available 10/15/2021 What Is Your Level Of Caffeine Consumption? Moderate [email or web address] Information not available 07/08/2022 What Type Of Vault Cashier Do You Use? None Information not available 09/11/2014 In The 14 Days Before Symptom Onset, Have You Had Close Contact With A Laboratory-confi rmed COVID-19 While That Case Was Ill? No [email or web address] Information not available 10/15/2021 In The 14 Days Before Symptom Onset, Have You Had Close Contact With A Person Who Is Under Investigation For COVID-19 While That Person Was Ill? No [email or web address] Information not available 10/15/2021 Have You Been To An Area Known To Be High Risk For COVID-19? No [email or web address] Information not available 10/15/2021 Are You Currently Employed? Yes [email or web address] Information not available 10/15/2021 Are You Deaf Or Do You Have Serious Difficulty Hearing? No [email or web address] Information not available 10/15/2021 What Type Of Diet Are You Following? REGULAR Information not available 09/11/2014 Do You Or Have You Ever Used E-cigarettes Or Vape? Current User Of Electronic Cigarettes Information not available 10/15/2021 What Is Your Occupation? [employer] [email or web address] Information not available 10/15/2021 Are There Any Guns Present In Your Home? No Information not available 09/11/2014 What Is Your Home Situation? Father Dad [email or web address] Information not available 07/17/2015 Do You Use Insect Repellent Routinely? Yes Information not available 09/11/2014 Car Seat Type Or Seat Belt? Seat Belt Information not available 09/11/2014 Parent Involvement? Mom Not Involved Mother [email or web address] Information not available 07/17/2015 Riding In Car Front Seat? Yes Information not available 09/11/2014 What Was The Date Of Your Most Recent Tobacco Screening? 04/02/2024 Information not available 04/02/2024 How Many Children Do You Have? 0 [email or web address] Information not available 10/15/2021 What Is Your Parents' Marital Status? Unmarried [email or web address] Information not available 07/17/2015 Pool Exposure No [email or web address] Informatio n not available 02/25/2015 What Is Your Relationship Status? Single Information not available 10/15/2021 What Is The Name Of Your School? Home Schooled [email or web address] Information not available 02/25/2015 Do You Use Your Seat Belt Or Car Seat Routinely? Yes [email or web address] Information not available 10/15/2021 Are You Sexually Active? Yes Information not available 03/10/2023 Do You Have Any Siblings? 2 Brothers [email or web address] Information not available 09/18/2014 Do You Have Smoke And Carbon Monoxide Detectors In Your Home? Yes Information not available 09/11/2014 Are You Passively Exposed To Smoke? No Information not available 09/11/2014 Do You Or Have You Ever Used Smokeless Tobacco? Never Used Smokeless Tobacco [email or web address] Information not available 10/15/2021 Do You Feel Stressed (tense, Restless, Nervous, Or Anxious, Or Unable To Sleep At Night)? [id number] [email or web address] Information not available 03/10/2023 Do You Use Any Illicit Or Recreational Drugs? No [email or web address] Information not available 10/15/2021 Do You Use Sunscreen Routinely? Yes Information not available 09/11/2014 Has Tobacco Cessation Counseling Been Provided? Yes [email or web address] Information not available 07/08/2022 On What Date Was Tobacco Cessation Counseling Provided? 04/02/2024 Information not available 04/02/2024 Year In School 11 [email or web address] Informati on not available 04/30/2016 Do You Or Have You Ever Used Any Other Forms Of Tobacco Or Nicotine? Yes [email or web address] Information not available 10/15/2021 How Many Years Have You Used E-cigarettes Or Vape? 3 11/28/23 Information not available 11/28/2023 Sex: Female Functional Status Question Answer Note LastModified by Organization D etails LastModified Time Are you able to care for yourself? Yes [email or web address] Information n ot available 10/15/2021 What is your exercise level? None [email or web address] Information not available 03/10/2023 Mental Status None recorded. Family History Relationship Description Onset Age of this Age Resolved Age Notes LastModified by Organization Details LastModified Time Father Diabetes mellitus [email or web address] Not available 10/15 10:18:04 Father Pulmonary embolism [email or web address] Not available 10/15 10:18:19 Father Heart failure [email or web address] Not available 10/15 10:18:31 Father Cerebrovascu lar accident [email or web address] Not available 10:20:46 Paternal Grandmother Diabetes mellitus [email or web address] Not available 10/15 10:18:04 Paternal Grandfather Diabetes mellitus [email or web address] Not available 10/15 10:18:04 Paternal Grandfather Pulmonary embolism [email or web address] Not available 10/15 10:18:19 Medical History Condition Response Coronary Artery Disease N High Blood Pressure N Atrial Fibrillation N Blood Diseases N Ear or Hearing Problems N Thyroid Problems N Kidney or Bladder Problems N COPD N Blood Clots N Depression Y GI Problems Y Developmental or Behavioral Disorders N Skin Problems N Eating Disorder N Premature N Anemia N Constipation N Heart Attack (PR) N Diabetes N Anxiety Disorder N Muscle, Joint, or Bone Problems N Bedwetting N Vision or Eye Problems N Seizures/Epilepsy N Heart Problems/Murmur N Head Injury/Concussion N Cancer N Stroke N Allergies N Asthma N ADHD N Bladder or Kidney Problems N High Cholesterol N Hepatitis N Liver Disease N Schizophrenia N Headaches Y Osteoporosis N Heart Failure N Chicken Pox N Autism Spectrum Disorder (ASD) N Gynecological History Statement/Question Response Flow Light Date of LMP 03/23/2024 Menses Monthly Y Duration of Flow (days) 7 Current Control Method None LMP Definite Obstetrics History GPAL:G 0 P 0 0 0 0 Type Value Living 0 Total 0 Immunizations Vaccine Type Date Status Note Provider Nam e and Address Organization Details Recorded Time DTaP 5 completed Kiki Clem[place], [place] [facility] 09/11/2014 16:29:36 DTaP 0 melva Clem[place] [facility] 09/11/2014 16:29:36 DTaP 0 [facility] [place] [facility] 09/11/2014 16:29:36 DTaP 1 melva [place] [facility] 09/11/2014 16:29:36 DTaP 0 [facility] [place] [facility] 09/11/2014 16:29:36 Hib, unspecified formulation 0 completed Kiki [place] [facility] 09/11/2014 16:29:53 Hib, unspecified formulation 0 completed [place] [facility] 09/11/2014 16:29:53 Hib, unspecified formulation 1 completed [place] [facility] 09/11/2014 16:29:53 Hep A, ped/adol, 2 dose 5 completed [place] [facility] 09/11/2014 16:32:25 Hep A, ped/adol, 2 dose 3 completed [place] [facility] 09/11/2014 16:32:25 Hep B, adolescent or pediatric 0 completed [place] [facility] 09/11/2014 16:32:46 Hep B, adolescent or pediatric 0 completed [place] [facility] 09/11/2014 16:32:46 Hep B, adolescent or pediatric 0 completed [place] [facility] 09/11/2014 16:32:46 HPV, unspecified formulation 1 completed [place] [facility] 09/11/2014 16:33:13 HPV, unspecified formulation 1 completed [place] [facility] 09/11/2014 16:33:13 HPV, unspecified formulation 4 completed [place] [facility] 09/11/2014 16:33:13 influenza, unspecified formulation 3 completed [place] [facility] 09/11/2014 16:33:46 influenza, unspecified formulation 6 completed Not Available [facility] 03/10/2023 14:52:25 influenza, unspecified formulation 1 [place] [facility] [place] [facility] 09/11/2014 16:33:46 influenza, unspecified formulation 8 completed Carola Elizabeth APN, LABORATORY TESTER-C Attn: Accounting,[address] [facility], [place], [address], [place] [facility] 07/08/2022 16:13:06 influenza, unspecified formulation 5 completed Not Available [facility] 03/10/2023 14:52:25 influenza, unspecified formulation 8 completed Carola Elizabeth APN LABORATORY TESTER-C Attn: Accounting,[address] [facility], [place], [address], [place] [facility] 07/08/2022 16:13:06 MMR 5 [place] [facility] [place] [facility] 09/11/2014 16:34:01 MMR 1 [place] [facility] [place] [facility] 09/11/2014 16:34:01 meningococcal MCV4, unspecified formulation 1 [place] [facility] [facility] 09/11/2014 16:34:17 pneumococcal conjugate PCV 7 1 [place] [facility] [facility] 09/11/2014 16:35:28 pneumococcal conjugate PCV 7 1 [place] [facility] [facility] 09/11/2014 16:35:28 IPV 0 [place] [facility] [facility] 09/11/2014 16:36:46 IPV 0 completed [place] [facility] 09/11/2014 16:36:46 IPV 5 completed [facility] [facility] 09/11/2014 16:36:46 IPV 1 [place] [facility] [facility] 09/11/2014 16:36:46 Tdap 1 [place] [facility] [place] [facility] 09/11/2014 16:36:56 varicella 8 completed Carola Elizabeth, CLERK STENOGRAPHER, LABORATORY TESTER-C Attn: Accounting,[address] [facility], [place], [place], [address] [place] [address], [facility] 07/08/2022 16:13:06 varicella 1 completed [facility] [place] [facility] 09/11/2014 16:37:11 Influenza, split virus, trivalent, PF 2 completed Carola Elizabeth, CLERK STENOGRAPHER, LABORATORY TESTER-C Attn: Accounting,[address] [facility], [place], [place], [address] [place] [address], [facility] 07/08/2022 16:13:06 influenza, split (incl. purified surface antigen) 5 completed Carola Elizabeth, CLERK STENOGRAPHER, LABORATORY TESTER-C Attn: Accounting,[address] [facility], [place], [address] [place] [address], [facility] 07/08/2022 16:13:06 influenza, split (incl. purified surface antigen) 6 completed Carola Elizabeth, CLERK STENOGRAPHER, LABORATORY TESTER-C Attn: Accounting,[address] [facility], [place], [address] [place] [address], [facility] 07/08/2022 16:13:06 Past Encounters Encounter ID Performer Location Encounter Start Date Encounter Closed Date Diagnosis/Indication Diagnosis SNOMED-CT Code Diagnosis ICD10 Code Diagnosis Note [id number] [facility] ([facility] [address] [place] [address] 09/11/2014 15:52:22 09/11/2014 18:08:23 Gastroenteritis 29616263 supportive care, BRATS diet, advanced slowly as tolerated Otitis media 90802043 sm viktoria free ,increase warm water,sali ne nasal spray prn, Upper resp iratory infection 81942652 [id number] [facility] ([facility]) [address] [place] [address] 09/18/2014 14:50:24 09/18/2014 17:52:43 Gastroenteritis 15814964 pt has nl exam with complaint, was told from previous pedi about no milk because of lactose intoleranc e, eat poptart for breakfast, request to see GI specialist . advise to stay on BRAT diet, so far very poor compliance Otitis media 03204807 im proving smoke free ,increase warm water,sali ne nasal spray prn, cont med Abdominal pain 23545152 diary of pain, eat small and freq brats diet, advance as tolerated advise to stay in [facility] [id number] [facility] [address] [place] [address] 02/25/2015 15:30:48 02/26/2015 08:42:22 Upper respiratory infection 61602853 keep nose cleaned, smoke free, cont med as directed, contact if not better after 3ds Otitis media 18715197 sm viktoria free ,increase warm water,sali ne nasal spray prn, med as directed [id number] [facility] [address] [place] [address] 04/29/2015 14:55:00 04/29/2015 18:14:38 Acute sinusitis 02207961 J01.90 Will start on zithromax. RTC if no improvemen t within 1 week. Saline spray BID. [id number] Gi [facility] (Peds) [address] [facility] [address] 07/17/2015 16:19:48 07/17/2015 17:57:29 Upper respiratory infection 51705757 J06.9 keep nose cleaned, smoke free, cont med as directed, contact if not better after 3ds Asthmatic bronchitis 405 597294 J45.909 albuterol q 4 hr until no cough for 2d, smoke free keep nose dry with cetrizine, saline spray prn, increase fluid contact if not better after 2d Dermatophytosis 67747894 B35.9 [id number] [facility] [address] [facility] [place] [address] 04/30/2016 16:23:24 05/04/2016 16:39:29 Upper respiratory infection 31587526 J06.9 keep nose cleaned, smoke free, cont med as directed, contact if not better after 3ds Generalized headache 162 045936 R51 [id number] Carola Elizabeth APN, LABORATORY TESTER-C [facility] (Adult Med) [address] [place] [address] 10/15/2021 10:04:21 10/22/2021 08:07:40 Adult health examination 970184634 Z00.01 Encouraged routine ASTRONAUTICAL ENGINEER, vision, dental exams, well balanced diet. Electronic cigarette user 571075429 Z72.89 Smoking cessation encouraged . Irritable bowel syndrome characterized by alternating bowel habit 247788661 K58.9 n/v/d/c triggered by stress, Dysfunctio n of eustachian tube 36104357 H68.003 bilateral TM's with middle ear fluid, start flonase, prn zofran when nausea hits/motio n sickness History of migraine 1614 80376 Z86.69 dwp med options, will send sumatripta n 50 mg [id number] Carola Elizabeth APN, LABORATORY TESTER-C [facility] (Adult Med) [address] [place] [address] 07/08/2022 15:38:47 07/09/2022 14:14:34 Acute maxillary sinusitis 09432112 J01.00 sinus pressure with purulent drainage, start abx History of migraine 1613 74839 Z86.69 dwp med options, will send sumatripta n 50 mg- tried and it did not help, has had to use two pills Dysfunctio n of eustachian tube 00497263 H68.003 bilateral TM's with middle ear fluid, start flonase, prn zofran when nausea hits/motio n sickness Atopic dermatitis 728241 01 L20.9 viktor hands, wrists, elbows, prn steroid topical cream [id number] Carola Elizabeth APN, FNP-C [facility] (Adult Med) [address] [place] [address] 03/10/2023 14:50:51 03/16/2023 11:02:47 Chronic sinusitis 53403223 J32.9 recurrent sinus issues, needs to see ENT, needs new referral as she cannot go here due to scheduling History of migraine 1613 60150 Z86.69 dwp med options, will send sumatripta n 50 mg- tried and it did not help, has had to use two pills Overweight 817609842 E66 .3 advised low fat, low cholestero l diet, regular exercise and weight reduction. Acute bila teral otitis media 521538572 H66.93 Viktor TM erythema and edema/bulg ing [id number] Carola Elizabeth APN, JACKI-[facility] (Adult Med) [address] [place] [address] 10/13/2023 16:22:15 10/14/2023 08:11:09 Acute bilateral otitis media 013035190 H66.93 Viktor TM erythema and edema/bulg ingpt allergy to pcn and cephalospo rins, will send alternativ e Chronic sinusitis 175977 00 J32.9 recurrent sinus issues, needs to see ENT, pt stopped flonase, advised to try astepro for faster results, [id number] Carola Elizabeth APN, [facility] (Adult Med) [address] [place] [address] 10/25/2023 16:01:03 10/28/2023 09:25:18 Adult health examination 797881159 Z00.01 Encouraged routine ASTRONAUTICAL ENGINEER, vision, dental exams, well balanced diet. History of migraine 1614 72375 Z86.69 dwp med options, will send sumatripta n 50 mg- tried and it did not help, has had to use two pills Overweight 693113521 E66 .3 advised low fat, low cholestero l diet, regular exercise and weight reduction. Recurrent viral infection 0499514055 09880 B34.9 labs per pt request, states her boss was worried she has something wrong since she is getting sick oftenhiv test-verba l consent given; Fatigue 86927962 R53.83 per pt request, states her boss was worried she has something wrong since she is getting sick often Smoker 76652602 F17.200 vapes, cessation encouraged Pain of le ft shoulder joint [id number] 3722938 M25.512 c/o stiff and pain since she was sick two weeks ago, but cannot pinpiont or reporduce the painexam wnl;ROM exercises dwp Atopic dermatitis 467950 01 L20.9 viktor hands, wrists, elbows, prn steroid topical cream, no current inflammati on but needs refill of cream [id number] Carola Elizabeth APN, FNP-C [facility] (Adult Med) [address] [place] [address] 11/28/2023 12:02:15 11/29/2023 16:07:45 Acute upper respiratory infection 04845818 J06.9 neg testing, dwp treat symptoms, call if lingering past 7-10 days [id number] Carola Elizabeth APN, FNP-C [facility] (Adult [facility]) [address] [facility] [place] [address] 04/02/2024 15:20:43 04/07/2024 11:32:30 Staphylococcal infection of skin 894201391 B95.8 right arm, will extend abx time line, possible MRSA as pt has had in past Health Concerns Section Related Observation LastModified by Organization Detai ls LastModified Time None Recorded Concern Status LastModified by Organization Details LastModified Time None Recorded Advance Directives Directive None Recorded Payers Encounter Date Sequence Insurance Name Policy Number Policy Levine Covered Member ID Levine Member ID Guarantor Name 03/10/2023 1 [facility] ON OR AFTER 12/04/20 (MEDICAID REPLACEMENT - HMO) Kat Glynn [id number] Khalif Glynn 10/13/2023 1 [facility] ON OR AFTER 12/04/20 (MEDICAID REPLACEMENT - HMO) Kat Glynn [id number] Khalif Glynn 10/25/2023 1 [facility] ON OR AFTER 12/04/20 (MEDICAID REPLACEMENT - HMO) Kat Glynn [id number] Khalif Glynn 11/28/2023 1 [facility] ON OR AFTER 12/04/20 (MEDICAID REPLACEMENT - HMO) Kat Glynn [id number] Khalif Glynn 04/02/2024 1 [facility] ON OR AFTER 12/04/20 (MEDICAID REPLACEMENT - HMO) Kat Glynn [id number] Khalif Glynn Notes Date Note Type Note Provider Name and Address Organization Details Recorded Time 03/10/2023 text/html needs referral for ENT- cant see Ananth. States she constantly has drainage from nose to throat and congestion on and off for 2 years Migraine-ibu covers it, does not use the triptan any more Carola Elizabeth APN, FNP-C Attn: Accounting,[address] [facility], [place], [address], [facility] 03/10/2023 23:29:26 10/13/2023 text/html Pt has left ear itching and she's had a productive cough. Her right side starts hurting she's breathing deeply and still has the pain going down the left side of her neck and goes down her arm. This has all been going on for a week. Carola Elizabeth APN, FNP-C Attn: Accounting,[address] [facility], [place], [address], [facility] 10/13/2023 17:12:01 10/25/2023 text/html here for annual exam and labs, only complaint is left shoulder pain if she moves her neck a certain way, has been since she was here last and was sick then, cannot reproduce pain, and cannot pinpoint it, but knows it is when she lays down Carola Elizabeth APN, FNP-C Attn: Accounting,[address] [facility], [place], [address], [facility] 10/26/2023 09:16:26 11/28/2023 text/html pt left work tuesday and went to over in [place] and was tested for flu and strep . Tried sudafed otc but did not help. Congestion, irritated throat, wet cough and ear pain. Carola Elizabeth APN, FNP-C Attn: Accounting,[address] [facility], [place], [address], [place] [facility] 11/28/2023 12:35:07 04/02/2024 text/html insect bite on right arm. went to ER on tuesday and given abx. states her arm is still sore and red. states it hurts to bend arm Carola Elizabeth APN, FNP-C Attn: Accounting,[address] [facility], [place], [address], [place] [facility] 04/02/2024 15:58:09 OBGyn Episode No OBEpisode recorded.
--- OUTSIDE RECORDS SUMMARY | 2024-09-21 09:05 | XMS_ITS | Clinical Summary ---
Author Organization [facility] Address [address] [place] [address] Care Team Providers Care Transport Aide Name Role Phone Sahhriar, Carola LACKEY Primary Care Provider [phone] Allergies Active Allergy Reactions Criticality Noted Date Comments Amoxicillin Throat swelling 03/30/2024 Medications triamcinolone (KENALOG) 0.1 % cream Apply topically 2 (two) times daily. 45 g Active Social History Tobacco Use Types Packs/Day Years Used Date Smoking Tobacco: Never Assessed Comments No Sex and Gender Information Value Date Recorded Sex Assigned at Not on file Legal Sex Female 3:54 PM CDT Gender Identity Not on file Sexual Orientation Not on file Last Filed Vital Signs Vital Sign Reading Time Taken Comments Blood Pressure 118/80 03/30/2024 4:01 PM CDT Pulse 87 03/30/2024 4:01 PM CDT Temperature 36.4 C (97.6 F) 03/30/2024 4:01 PM CDT Respiratory Rate 20 03/30/2024 4:01 PM CDT Oxygen Saturation 100% 03/30/2024 4:01 PM CDT Inhaled Oxygen Concentration - - Weight 70.3 kg (155 lb) 03/30/2024 4:01 PM CDT Height 165.1 cm (5' 5 ) 03/30/2024 4:01 PM CDT Body Mass Index 25.79 03/30/2024 4:01 PM CDT Plan of Treatment Health Maintenance Due Date Last Done Comments Annual Physical 08/09/2002 Hepatitis C 08/09/2017 DTaP, Tdap and Td Vaccines (7 - Td or Tdap) 01/25/2021 01/25/2011, 11/19/2004, 12/12/2000, Additional history exists Cervical Cancer Screening Pap Smear (Age 21 to 29) Every 3 Years 02/19/2023 02/20/2020 Cervical Cancer Screening 02/19/2023 COVID-19 Vaccine ( season) 2024 Hepatitis B Vaccines Completed 05/05/2000, 1999, 1999 Pneumococcal Vaccine: Pediatrics (0 to 5 Years) and At-Risk Patients (6 to 49 Years) Aged Out 12/12/2000, 09/30/2000 No longer eligibl e based on patient's age to complete this topic Meningococcal Vaccine Aged Out 02/11/2011 No arely bob eligible based on patient's age to complete this topic HPV Vaccines Completed 07/05/2013, 04/07, 02/11/2011 Meningococcal B Vaccine Aged Out No l onger eligible based on patient's age to complete this topic RSV Immunizations Under 20 Months Aged Out No longer eligible based on patient's age to complete this topic Insurance Member Subscriber Plan / Payer (Ef fective 2023-Present) Name:Kat Glynn Relation to Subscriber:Self Name:Kat Glynn Payer ID:[id number] (NAIC) Group ID:Not on file Type:Not on file Address: [address] [address] Care Teams Transport Aide Relationship Specialty Start Date End Date Carola Bess APNP [address] [place] [address] PCP - General NURSE PRACTITIONER 03/30/24
--- OUTSIDE RECORDS SUMMARY | 2024-09-21 09:05 | XMS_ITS | Clinical Summary ---
Author Organization [facility] [employer] Address [address] [place] [address] Care Team Providers Care Forest Ecologist Name Role Phone Unavailable Primary Care Provider Unavailabl e Source Comments [facility] [employer],non-owned Affiliates and Associated Physician Practices is amultiple site organization consisting of ambulatory clinics and hospital sitesin [place], [place], [place] and [place]. This disclosure is being madepursuant to the Care Everywhere program and may not contain all information available regarding this patient. Last updated 18.[facility] [employer] Allergies Active Allergy Reactions Criticality Noted Date Comments Clindamycin Other Low 04/20/2019 Reaction: Penicillins Swelling,Vomiting Low 09/04/2017 Medications * Be aware that medications may not be up to date on this document. Alwaysverify current medications with the patient. ranitidine (ZANTAC) 150 MG tablet Take 150 mg by mouth 2 times daily. Active Social History Tobacco Use Types Packs/Day Years Used Date Smoking Tobacco: Every Day Cigarettes Alcohol Use Standard Drinks/Week Comments Yes 0 (1 standard drink = 0.6 oz pur e alcohol) AUDIT-C Answer Date Recorded Q1: How often do you have a drink containing alc ohol? 2-3 times a week 02/20/2020 Average Number of Drinks Not on file 020 Frequency of Binge Drinking Not on file 02/04 Comments Unknown Sex and Gender Information Value Date Recorded Sex Assigned at Not on file Legal Sex Female 9:07 AM CDT Gender Identity Not on file Sexual Orientation Not on file Last Filed Vital Signs Vital Sign Reading Time Taken Comments Blood Pressure 127/81 02/20/2020 11:07 AM CDT Pulse 80 02/20/2020 11:07 AM CDT Temperature 36.6 C (97.9 F) 02/20/2020 11:07 AM CDT Respiratory Rate 20 02/20/2020 11:07 AM CDT Oxygen Saturation 100% 02/20/2020 11:07 AM CDT Inhaled Oxygen Concentration - - Weight 68 kg (150 lb) 02/20/2020 11:07 AM CDT Height - - Body Mass Index - - Plan of Treatment Health Maintenance Due Date Last Done Comments HIV SCREENING 08/09/2014 HPV VACCINE (1 - 3-dose series) 08/09/2014 HEPATITIS C SCREENING 08/05/2017 DTAP/TDAP/TD VACCINES (1 - Tdap) 08/09/2018 HEPATITIS B VACCINE (1 of 3 - 19+ 3-dose series) 08/09/2018 CHLAMYDIA/GONORRHEA SCREENING 02/19/2021, 06/01/2017 COVID-19 VACCINE ( - 2023-2 5 season) 2024 DEPRESSION SCREENING 06/06/2024 INFLUENZA VACCINE (Season Ended) 2025 ZOSTER VACCINE (1 of 2) 08/09/2049 HIB VACCINE Aged Out No longer eligi ble based on patient's age to complete this topic MENINGOCOCCAL (Group B) VACCINE SHARED DECISION-MAKING Aged Out No longer eligible based on patient's age to complete this topic MENINGOCOCCAL GROUPS A/C/Y/W VACCINE Aged Out No longer eligible b ased on patient's age to complete this topic PNEUMOCOCCAL VACCINE Aged Out No long er eligible based on patient's age to complete this topic Procedures Procedure Name Priority Date/Time Associated Diagnosis Comments CHLAMYDIA + GC AMPLIFIED PROBE STAT 02/20/2020 11:52 AM CDT Bacterial vaginosis from Last 3 Months or Most Recently Relevant to Health Maintenance Results * CHLAMYDIA + GC AMPLIFIED PROBE (STL) (02/20/2020 11:52 AM CDT) Chlamydia Amplified Probe Negative Negative 02/21/2020 12:23 PM CDT [facility] GC Amplified Probe Negative Negative 02/21/2020 12:23 PM CDT [facility] Microbiology ENTIRE VAGINA / Unknown Collection / Unknown 02/20/2020 11:52 AM CDT 02/20/2020 11:52 AM CDT Narrative [facility]CRO[facility] - 02/21/2020 12:23 PM CDT Results based on detection/no detection of ribosomal RNA by amplified method. Suzan Washington CARPENTER APPRENTICE-SPORTS EQUIPMENT SUPERVISOR LAB - MICROBIOLOGY ORDERABLES Final Result [facility]CRO[facility] [address] [place] [address], [facility] [phone] from Last 3 Months or Most Recently Relevant to Health Maintenance Insurance MEDICAID - OUT OF STATE
--- OUTSIDE RECORDS SUMMARY | 2024-09-21 09:09 | XMS_ITS | Referral Summary ---
Author Organization [facility] Address [address] [place] [address] Care Team Providers Care Museum Informatics Specialist Name Role Phone Carola Bess NP Primary Care Provider Allergies Active Allergy Reactions Criticality Noted Date Comments Amoxicillin Hives,Vomiting High 09/04/2017 Clindamycin Other (See comments) Low 04/20/2019 Reaction: Medications amitriptyline (ELAVIL) 25 mg tablet Take 1 tablet (25 mg total) by mouth nightly 60 tablet 1 Active omeprazole (PriLOSEC) 40 mg capsuleIndication s:Moderate episode of recurrent major depressive disorder (HCC),Irritable bowel syndrome with both constipation and diarrhea Take 1 capsule (40 mg total) by mouth daily 60 capsule 1 Active valACYclovir (VALTREX) 500 mg tablet Take 1 tablet (500 mg total) by mouth daily 90 tablet 2 Active dicyclomine (BENTYL) 10 mg capsule 2 Active ondansetron (ZOFRAN) 8 mg tablet 2 Active SUMAtriptan (IMITREX) 50 mg tablet 2 Active levonorgestreL-et hinyl estrad (Aviane) 0.1-20 mg-mcg per tablet Take 1 tablet by mouth daily 84 tablet 2 Active ketorolac (TORADOL) 10 mg tablet Take 1 tablet (10 mg total) by mouth every 6 (six) hours as needed for pain 20 tablet 3 Active tretinoin (RETIN-A) 0.05 % cream Apply topically nightly 45 g 11 4 11/21/19 25 Active Active Problems Problem Noted Date Diagnosed Date Pain, dental 01/20/2023 Assessment & Plan (01/20/2023 11:38 AM CDT): Swelling and erythema surrounding Left lower wisdom teeth. CT w/o abscess - started on CTX/flagyl (PCN allergy) in ED, continued on admission w/ improvement. Plan to dc on cefdinir and flagyl x7d. - tolerating diet - encouraged f/u with dentist and oral surgeon as outpatient GERD (gastroesophageal reflux disease) Assessment & Plan (08/06/2020 11:58 AM COMBATANT DIVER OFFICER): - doing well with OTC omeprazole 40 mg daily - continue with current therapy, will switch her to pepcid down the road Irritable bowel syndrome wit h both constipation and diarrhea 08/04/2020 Assessment & Plan (08/06/2020 11:59 AM COMBATANT DIVER OFFICER): - new diagnosis, symptoms consistent with IBS - will start her on Amitriptyline at 25 mg nightly for now to help with the abdominal pains - she does not have excessive diarrhea/cosntipation at this time - would benefit with a FODMAP diet - follow up in 6-8 weeks Moderate episode of recurrent major depressive d isorder 06/24/2020 Assessment & Plan (01/20/2023 11:37 AM CDT): - Resumed home amitriptyline Assessment & Plan (08/06/2020 12:00 PM COMBATANT DIVER OFFICER): - hx of depression that is still ongoing - no SI or HI, no visual or auditory hallucinations - appears that she has good social support - has was on wellbutrin briefly but stopped it prematurely so no longer on it - given she has IBS, she will be started on amitriptyline for abdominal pains which can also help with her depression - follow up in 6 weeks Assessment & Plan (06/24/2020 6:06 AM COMBATANT DIVER OFFICER): - patient on interview has ongoing depression - no SI or HI, no visual or auditory hallucinations - appears that she has good social support and lives with her brother - will start her on Zoloftt 50 mg once daily - follow up in 6 weeks Hemorrhoids 06/24/2020 Assessment & Plan (06/24/2020 6:07 AM COMBATANT DIVER OFFICER): - recommend that she start taking fiber supplements and also take stool softeners daily at this time - she may use preparation H as needed as well - on next visit if not resolving will do a rectal exam, patient agrees with this plan Current every day smoker 06/24/2020 Overview (06/24/2020): Social History Tobacco Use Smoking Status Current Every Day Smoker Packs/day: 0.15 Types: Cigarettes Smokeless Tobacco Never Used Since age of 12? Assessment & Plan (06/24/2020 6:09 AM COMBATANT DIVER OFFICER): Social History Tobacco Use Smoking Status Current Every Day Smoker Packs/day: 0.15 Types: Cigarettes Smokeless Tobacco Never Used Discussed smoking cessation with patient Patient understands the risks of smoking She has some depression as well so will opt for use of wellbutrin as it may also help with smoking cessation. Herpes simplex vulvovaginitis 06/23/2020 Assessment & Plan (06/24/2020 6:05 AM COMBATANT DIVER OFFICER): - follows with OBGYN - has hx of genital herpes - takes Valacylovir 500mg BID x 3 days as needed for outbreaks - had one outbreak last week but not too frequently Immunizations Immunization Administration Dates Next Due DTaP 11/19/2004, 1,02/04/2000,12/14,1999 HPV, Unspecified 07/05/2013,04/27/2011, 1 Hep A, Pediatric 11/19/2004,03/01/2003 Hep B, Adolescent or Pediatric 05/05/2000,1999,1999 HiB 12/12/2000,1999,1999 IPV 11/19/2004, 1,1999,10/15 Influenza, Split 06/02/2006,04/22/2005 Influenza, Trivalent, Preser vative Free, Intramuscular 02/23/2012 Influenza, Unspecified 03/06/2020(Deferr ed: Patient Refused),03/06/2013,03/25/2011, 008,07/13/2007 MMR 11/19/2004,09/30/2000 Meningococcal MCV4, Unspecified 02/11/2011 Pneumococcal Conjugate 7-Valent 12/12/2000,09/30 Tdap 01/25/2011 Varicella 04/30/2008,09/30/2000 Social History Tobacco Use Types Packs/Day Years Used Date Smoking Tobacco: Some Days Vaping Smokeless Tobacco: Never Tobacco Cessation:Ready to Q uit: Not Asked; Counseling Given: Not Answered Alcohol Use Standard Drinks/Week Comments No 0 (1 standard drink = 0.6 oz pur e alcohol) PHQ-2 Answer Date Recorded PHQ-2 Total Score (If total score is 3 or more points, staff should administer the PHQ-9) 2 10/28/2020 Personal Safety Answer Date Recorded Have you ever been in or are you currently in a harmful physical or emotional relationship or is someone making you feel afraid or unsafe? Denies 01/20/2023 Comments No Sex and Gender Information Value Date Recorded Sex Assigned at Not on file Legal Sex Female 2:22 PM COMBATANT DIVER OFFICER Gender Identity Not on file Sexual Orientation Not on file Last Filed Vital Signs Vital Sign Reading Time Taken Comments Blood Pressure 111/77 01/20/2023 8:20 AM CDT Pulse 110 01/20/2023 8:20 AM CDT Temperature 36.6 C (97.9 F) 01/20/2023 8:20 AM CDT Respiratory Rate 16 01/20/2023 8:20 AM CDT Oxygen Saturation 99% 01/20/2023 8:20 AM CDT Inhaled Oxygen Concentration - - Weight 69.8 kg (153 lb 12.8 oz) 01/20/2023 4:35 AM CDT Height 165.1 cm (5' 5 ) 01/20/2023 4:35 AM CDT Body Mass Index 25.59 01/20/2023 4:35 AM CDT Plan of Treatment Not on file Procedures Procedure Name Priority Date/Time Associated Diagnosis Comments HEPATITIS C ANTIBODY Routine 02/21/2020 11:46 AM CDT Routine screening for STI (sexually transmitted infection) from Last 3 Months or Most Recently Relevant to Health Maintenance Results * Hepatitis C antibody (02/21/2020 11:46 AM CDT) Hep C Ab Nonreactive Nonreactive [facility] ([place]) Comment: Interpretive Data Nonreactive: Antibodies to HCV not detected. Does NOT exclude the possibility of recent exposure to HCV. Equivocal: Equivocal for HCV antibodies. Supplemental molecular testing will be automatically performed to determine infection status in accordance with current CDC screening recommendations. Reactive: Positive for HCV antibodies. This may represent current or past HCV infection. Supplemental molecular testing will be automatically performed to determine current infection status in accordance with current CDC screening recommendations. Interpretive data was last revised on 2019. Testing performed by: [facility], [address] [place] [address]., [id number] Blood specimen (specimen) 02/21/2020 11:46 AM CDT 02/21/2020 4:32 PM CDT Cleo aCsper NP LAB MICROBIOLOGY - GENERAL ORDER [place] Final Result [facility]END[facility] ([facility]) [address] [facility] [place] [address] from Last 3 Months or Most Recently Relevant to Health Maintenance Insurance [facility] Advance Directives For more information, please contact: [phone] * Full Code (Latest Code Status on File) Date Activated Date Inactivated Comments 01/20/2023 4:36 AM 01/20/2023 4:52 PM Care Teams Museum Informatics Specialist Relationship Specialty Start Date End Date Carola Bess NP [address] [place] [address] PCP - General Nurse Practitioner 07/19/22
--- OUTSIDE RECORDS SUMMARY | 2024-09-21 09:09 | XMS_ITS | Clinical Summary ---
Author Organization [facility] Address [address] [place] [address] Care Team Providers Care Loading Dock Hand Name Role Phone Carola Bess NP Primary [...] disease) Assessment & Plan (08/06/2020 11:58 AM SOIL CONSERVATION TECHNICIAN): - doing well with OTC omeprazole 40 mg daily - continue with current therapy, will switch her to pepcid down the road Irritable bowel syndrome wit h both constipation and diarrhea 08/04/2020 Assessment & Plan (08/06/2020 11:59 AM SOIL CONSERVATION TECHNICIAN): - new diagnosis, symptoms consistent with IBS [...] amitriptyline Assessment & Plan (08/06/2020 12:00 PM SOIL CONSERVATION TECHNICIAN): - hx of depression that is still [...] weeks Assessment & Plan (06/24/2020 6:06 AM SOIL CONSERVATION TECHNICIAN): - patient on interview has ongoing depression - no SI or HI, no visual or auditory hallucinations - appears that she has good social support and lives with her brother - will start her on Zoloftt 50 mg once daily - follow up in 6 weeks Hemorrhoids 06/24/2020 Assessment & Plan (06/24/2020 6:07 AM SOIL CONSERVATION TECHNICIAN): - recommend that she start taking fiber [...] 13? Assessment & Plan (06/24/2020 6:09 AM SOIL CONSERVATION TECHNICIAN): Social History Tobacco Use Smoking Status Current Every Day Smoker Packs/day: 0.15 Types: Cigarettes Smokeless Tobacco Never Used Discussed smoking cessation with patient Patient understands the risks of smoking She has some depression as well so will opt for use of wellbutrin as it may also help with smoking cessation. Herpes simplex vulvovaginitis 06/23/2020 Assessment & Plan (06/24/2020 6:05 AM SOIL CONSERVATION TECHNICIAN): - follows with OBGYN - has hx [...] Conjugate 7-Valent 12/12/2000,09/30 Tdap 01/25/2011 Varicella 04/30/2008,09/30/2000 Family History Medical History Relation Name Comments Blood Clot Father Diabetes Father Heart disease Father Cancer Other 1 Family history of Cancer; Diabetes Other 2 Family history of Diabetes mellitus; Hypertension Other 3 Family history of Hypertension; Seizures Other 4 Family history of Seizure disorder; Stroke Other 5 Family history of Stroke; Relation Name Status Comments Father Other 1 Other 2 Other 3 Other 4 Other 5 Social History Tobacco Use Types Packs/Day Years [...] on file Legal Sex Female 2:22 PM SOIL CONSERVATION TECHNICIAN Gender Identity Not on file Sexual Orientation Not on file Obstetrics History Para Term AB IAB SAB Ectopic Multiple Livin g Live Births 3 0 3 2 1 Date Outcome GA Total Labor Labor/2nd/3rd Weight Sex Type Anes PTL Yamile A1 A5 Name Clin 2014 IAB 2016 SAB Demise 2016 IAB Last Filed Vital Signs Vital Sign Reading [...] 01/20/2023 4:35 AM CDT Plan of Treatment Health Maintenance Due Date Last Done Comments Cervical Cancer Screening 1999 Pneumococcal vaccine <65 (1 of 1 - PPSV23) 08/09/2005 12/12/2000, 09/30/2000 Regular Well Visit/Exam 18-64 08/09/2017 DTaP/Tdap/Td Vaccine (7 - Td or Tdap) 01/25/2021 01/25/2011, 11/19/2004, 12/12/2000, Additional history exists Depression Screening 10/28/2021 10/28/2020, 08/04/2020, 06/23/2020 Influenza Vaccine (#1) 2024 3, 02/23/2012, 03/25/2011, Additional history exists Hepatitis B Screening Completed 05/05/2000 , 1999, 1999 Varicella Vaccines Completed 04/30/2008, 09/30/2000 HPV Vaccines Completed 07/05/2013, 04/07, 02/11/2011 Hepatitis C Screening Completed 02/21/2020 Procedures Procedure Name Priority Date/Time Associated Diagnosis Comments HEPATITIS C ANTIBODY Routine 02/21/2020 11:46 AM CDT Routine screening for STI (sexually transmitted infection) from Last 3 Months or Most Recently Relevant to Health Maintenance Results * Hepatitis C antibody (02/21/2020 11:46 AM CDT) Hep C Ab Nonreactive Nonreactive ISABELA ARMENDARIZ ([facility]) Comment: Interpretive Data Nonreactive: Antibodies to HCV [...] last revised on 2019. Testing performed by: [facility], [address] [place] [address], [place]., [address] Blood specimen (specimen) 02/21/2020 11:46 AM CDT 02/21/2020 4:32 PM CDT Cleo Casper NP LAB MICROBIOLOGY - GENERAL ORDER LAVINIA Final Result [facility] ([place]) [address] [facility] Department [place] [employer] [place] [address] from Last 3 Months or Most Recently Relevant to Health Maintenance Insurance [id number] [place] [address] [facility] Advance Directives For more information, please contact: [phone] * Full Code (Latest Code Status on File) Date Activated Date Inactivated Comments 01/20/2023 4:36 AM 01/20/2023 4:52 PM Care Teams Loading Dock Hand Relationship Specialty Start Date End Date Carola Bess NP [address] [place] [address] PCP - General Nurse Practitioner 07/19/22
[2024-09-21 09:11] VITALS: BP 124/83; PULSE 84; RESP 16; TEMP 36.7; O2SAT 100
--- NOTE | 2024-09-21 09:13 | ED_ITS ---
HPI - URI/Sore Throat General Chief Complaint: Upper Respiratory Infection Stated Complaint: Headache/Sore Throat Time Seen by Provider: 09/21/24 09:13 Source: patient, RN notes reviewed and old records reviewed Mode of arrival: ambulatory Limitations: no limitations History of Present Illness HPI Narrative: 24 year old female who presents to [facility] care with complaints of headache,eye pain, sore throat, cough, feeling hot and cold with fever noted yesterday evening of 101F. and body aches that started yesterday morning.Patient reports that her brother was diagnosed with the flu 2 days ago.Patient reports that she has been taking Ibuprofen and OTC oscillococcinum for her symptoms. MD elicited complaint: fever, cough, sore throat and other (headache and body aches) Pertinent past history: other (strep throat) Onset (ago): day(s) (yesterday morning) Severity: moderate Able to tolerate fluids by mouth: Yes Treatments prior to arrival: ibuprofen and other (oscillococcinum OTC) Related Data Allergies Allergy/AdvReac Type Severity Reaction Status Date / Time amoxicillin Allergy Swelling Verified 04/14/24 18:11 of Lip/Tongue/Throat Review of Systems Review of Systems: CONSTITUTIONAL: Reports malaise, chills, sweats, or fever. EYES: Denies visual changes, redness, or discharge.states eyes ache ENT: Reports rhinorrhea, congestion, sinus pressure ,no otalgia and positive for sore throat. CARDIOVASCULAR: Denies chest pain, palpitations, or edema. RESPIRATORY: Reports cough.? Denies dyspnea. GASTROINTESTINAL: Denies abdominal pain, nausea, vomiting, diarrhea SKIN: Denies rash or itching. MUSCULOSKELETAL: Reports myalgia. NEUROLOGIC: Reports headache. All systems reviewed & are unremarkable except as noted in HPI and below [facility] Past Medical History Medical History (Updated 09/21/24 @ 09:37 by Cheyenne Torre NP) History of streptococcal sore throat Hx of migraines Social History Social History (Updated 09/21/24 @ 09:26 by Cheyenne Torre NP) Smoking status: Current every day smoker Tobacco type: e-cigarettes/vaping Alcohol intake: current Alcohol use details: social Substance use type: does not use Living arrangements: with family Gender identity (if verbalized by the patient): Female Comments At time of signature, agree with nursing past medical, surgical, social and family history. There is no relevant family history pertinent to the presenting complaint Exam Narrative: GENERAL: Well-appearing, well-nourished, and in no acute distress. HEAD: Normocephalic EYES: PERRLA, conjunctivae clear ENT: Nares clear, turbinates edematous and erythematous, clear discharge sinus pressure. Mucous membranes moist. TM pearly reed with dull light reflex bilaterally; no tragal tenderness. Oropharynx erythematous without lesions. Tonsils red not enlarged and throat with some white exudate, no drooling, no hoarseness, no trismus, uvula midline.post nasal drainage NECK: Supple. No lymphadenopathy CHEST: Clear to auscultation, breath sounds equal. No wheezing, rhonchi, rales, or stridor. No respiratory distress, speaks in full sentences.dry cough, SAO2 100% on room air HEART: Regular rate and rhythm. No murmur heard. SKIN: Warm, dry, no rash. NEURO: Alert and oriented x3. PSYCH: Normal mood and affect Course Course Emergency Course: Patient is aware of diagnosis, understands and agrees to treatment plan.? Anticipatory guidance given.? Patient agrees to follow-up as directed and is aware of reasons to seek care at the emergency department. Portions of this record may have been created with voice recognition software Level of Care: Express Care Visit Vital Signs Vital signs: Vital Signs Temperature 36.7 C 09/21/24 09:11 Pulse Rate 84 09/21/24 09:11 Respiratory Rate 16 09/21/24 09:11 Blood Pressure 124/83 09/21/24 09:11 Pulse Oximetry 100 09/21/24 09:11 Oxygen Delivery Room Air 09/21/24 09:11 Temperature 36.7 C 09/21/24 09:11 Pulse Rate 84 09/21/24 09:11 Respiratory Rate 16 09/21/24 09:11 Blood Pressure 124/83 09/21/24 09:11 Pulse Oximetry 100 09/21/24 09:11 Oxygen Delivery Room Air 09/21/24 09:11 Reviewed MDM - URI/Sore Throat MDM Narrative Medical decision making narrative: Differential diagnosis considered: Epps virus, strep pharyngitis, allergic rhinitis, upper respiratory tract infection, sinusitis, rhinosinusitis, nasopharyngitis. viral pharyngitis, otitis media, otitis externa, pneumonia, bronchitis, viral cough syndrome, viral syndrome, and influenza.? Exam findings show no acute concerns or changes; patient is non-toxic appearing and is in no distress.? Patient is appropriate for outpatient treatment and follow-up. Differential Diagnosis Differential diagnosis: Likely upper respiratory infection, viral infection, influenza, pharyngitis and other (COVID, strep pharyngitis) Medical Records Attestation: I reviewed the patient's medical records. Lab Data Attestation: I reviewed the patient's lab results. Lab results narrative: Influenza A negative, Influenza B negative, COVID antigen negative, strep screen negative, culture sent Labs: Lab Results 09/21/24 09/21/24 Range/Units 09:22 09:30 POC Influenza A Ag Negative (Negative) POC Influenza B Ag Negative (Negative) POC SARS CoV-2 Ag Negative (Negative) POC Grp A Strep Screen Negative (Negative) reviewed Critical Care Time Critical Care Time Critical Care Time: No Discharge Plan Discharge Clinical Impression: Pharyngitis Qualifiers: Pharyngitis/tonsillitis etiology: unspecified etiology Qualified Code(s): J02.9 - Acute pharyngitis, unspecified Patient Disposition: Home Condition: Stable Instructions: Antibiotic Form, Pharyngitis (ED) Additional Instructions: . Throw away your current toothbrush and begin using a new toothbrush in 48 hours in order to prevent re-infection. Sanitize all reusable water bottles . Do not share items with others. Salt water gargles may alleviate some of the throat discomfort. You can take Tylenol or ibuprofen per the package instructions for pain/fever. Your strep test today was negative. A throat culture will be sent to the laboratory for further testing. Call clinic on Tuesday to check culture report if negative you may discontinue antibiotic If your symptoms persist, change or worsen significantly before you can contact your personal physician then please, without delay, go to the emergency department for further evaluation. Follow-up with PCP in 7-10 days or sooner if needed Follow up with PCP soon in regards to your blood pressure which is elevated above threshold for referral. Blood pressure above 120/80 may indicate pre- hypertension. Minimal elevation 124/83 Patient Language: Occitan Prescriptions: New dexamethasone 4 mg tablet 8 mg PO ONCE Qty: 2 0RF Rx Instructions: one time dose cephalexin 500 mg capsule 500 mg PO Q12H Qty: 14 0RF Follow-up/Referrals: UNKNOWN,DOCTOR [Primary Care Provider] - Time of Disposition: 09:39 Quality Darius Coma Scale Eyes: Open Verbal: Oriented and Alert Motor: Follows Commands Fitzgerald Coma Total Score: 15
[2024-09-21 09:24] LABS: EDSTREPNEGPOS1 Negative (Negative)
[2024-09-21 09:32] LABS: EDCOVIDSCREEN Negative (Negative); EDINFLUASCREEN Negative (Negative); EDINFLUBSCREEN Negative (Negative)
== END 2024-09-21 09:45 | disposition home or self-care (01) ==
PROVIDERS: Emergency Provider Registered Nurse
DX: J02.9 Acute pharyngitis, unspecified (principal); Z20.822 Contact with and (suspected) exposure to COVID-19; F17.290 Nicotine dependence, other tobacco product, uncomplicated
CPT/HCPCS: 87081; 87426; 87804; 87880; 99213; G0463

== ENCOUNTER 2025-02-10 11:16 | Emergency (ER) | payer SELFPAY ==
--- NOTE | ~2025-02-10 | US_ITS ---
EXAMINATION: US OB <=14 wk fetus w TV, 02/10/2025 12:42 CDT HISTORY: vaginal bleeding, abdominal cramping Comparison: None Technique: Hutchins-scale and color Doppler images were obtained. Findings: Uterus: Uterus anteverted measuring 7.8 x 3.9 x 5.1 cm. . The endometrium is thickened with a heterogeneous appearance measuring 1.9 cm but there is no abnormal flow, there is a cystic focus noted.Within the fundal region toward the right side measuring 3 x 3 mm which is too small to characterize, this may represent an early gestational sac, there is no gross pole or yolk sac demonstrated. Right Ovary:Right ovary measures 3.3 x 1.8 x 2.3 cm, no adnexal mass, normal flow, probable dominant follicle 1.2 x 1.3 cm. Left Ovary: Left ovary 2.7 x 1.7 x 1.4 cm, no adnexal mass, normal flow. Free Fluid: None Impression: 1. Questionable intrauterine gestational sac. Serial beta-hCG and follow recommended Reviewed, dictated and finalized at location A. Impression: 1. Questionable intrauterine gestational sac. Serial beta-hCG and follow recomm ended
--- OUTSIDE RECORDS SUMMARY | 2025-02-10 11:18 | XMS_ITS | Clinical Summary ---
Author Organization [facility] Address [address] [place] [address] Care Team Providers Care Emergency Medicine Name Role Phone Unavailable Primary Care Provider Unavailabl e Source Comments [facility],non-owned Affiliates and Associated Physician Practices is amultiple site organization consisting of ambulatory clinics and hospital sitesin [place], [place], [place] and [place]. This disclosure is being madepursuant to the Care Everywhere program and may not contain all information available regarding this patient. Last updated 18.[facility] Allergies Active Allergy Reactions Criticality Noted Date [...] - 19+ 3-dose series) 08/09/2018 CHLAMYDIA/GONORRHEA SCREENING 02/19/2021 02/20/2020 DEPRESSION SCREENING 06/06/2024 COVID-19 VACCINE (1 - 2023-2 5 season) 2025 INFLUENZA VACCINE (#1) 2025 ZOSTER VACCINE (1 of 2) 08/09/2049 HIB VACCINE Aged Out No longer eligi ble based on patient's age to complete this topic MENINGOCOCCAL (Group B) VACC INE SHARED DECISION-MAKING Aged Out No longer eligibl e based on patient's [...] Probe Negative Negative 02/21/2020 12:23 PM CDT [facility] GC Amplified Probe Negative Negative 02/21/2020 12:23 PM CDT [facility] Microbiology ENTIRE VAGINA / Unknown Collection / Unknown 02/20/2020 11:52 AM CDT 02/20/2020 11:52 AM CDT Narrative [facility]OLOGY - 02/21/2020 12:23 PM CDT Results based on detection/no detection of ribosomal RNA by amplified method. Suzan Washington SPECIAL EVENTS DIRECTOR-GANG BORE OPERATOR LAB - MICROBIOLOGY ORDERABLES Final Result [facility] [address] [place] [address], [facility] [phone] from Last 3 Months or Most Recently Relevant to Health Maintenance Insurance MEDICAID - OUT OF STATE
--- OUTSIDE RECORDS SUMMARY | 2025-02-10 11:18 | XMS_ITS | Clinical Summary ---
Author Organization [facility] Address [address] [place] [address] Care Team Providers Care Grid Caster Name Role Phone Carola Bess NP Primary [...] needed for pain 20 tablet 3 Active Active Problems Problem Noted Date Diagnosed [...] disease) Assessment & Plan (08/06/2020 11:58 AM INDUCTION HEATING EQUIPMENT SETTER): - doing well with OTC omeprazole 40 mg daily - continue with current therapy, will switch her to pepcid down the road Irritable bowel syndrome wit h both constipation and diarrhea 08/04/2020 Assessment & Plan (08/06/2020 11:59 AM INDUCTION HEATING EQUIPMENT SETTER): - new diagnosis, symptoms consistent with IBS [...] amitriptyline Assessment & Plan (08/06/2020 12:00 PM INDUCTION HEATING EQUIPMENT SETTER): - hx of depression that is still [...] weeks Assessment & Plan (06/24/2020 6:06 AM INDUCTION HEATING EQUIPMENT SETTER): - patient on interview has ongoing depression - no SI or HI, no visual or auditory hallucinations - appears that she has good social support and lives with her brother - will start her on Zoloftt 50 mg once daily - follow up in 6 weeks Hemorrhoids 06/24/2020 Assessment & Plan (06/24/2020 6:07 AM INDUCTION HEATING EQUIPMENT SETTER): - recommend that she start taking fiber [...] 13? Assessment & Plan (06/24/2020 6:09 AM INDUCTION HEATING EQUIPMENT SETTER): Social History Tobacco Use Smoking Status Current Every Day Smoker Packs/day: 0.15 Types: Cigarettes Smokeless Tobacco Never Used Discussed smoking cessation with patient Patient understands the risks of smoking She has some depression as well so will opt for use of wellbutrin as it may also help with smoking cessation. Herpes simplex vulvovaginitis 06/23/2020 Assessment & Plan (06/24/2020 6:05 AM INDUCTION HEATING EQUIPMENT SETTER): - follows with OBGYN - has hx [...] on file Legal Sex Female 2:22 PM INDUCTION HEATING EQUIPMENT SETTER Gender Identity Not on file Sexual Orientation [...] 4:35 AM CDT Height 165.1 cm (5' 5) 01/20/2023 4:35 AM CDT Body Mass Index 25.59 01/20/2023 4:35 AM CDT Plan of Treatment Health Maintenance Due Date Last Done Comments Cervical Cancer Screening 1999 Pneumococcal vaccine <65 (1 of 1 - PPSV23, PCV20, or PCV21) 08/09/2005 12/12/2000, 09/30/2000 Regular Well Visit/Exam 18-64 08/09/2017 DTaP/Tdap/Td Vaccine (7 - Td or Tdap) 01/25/2021 01/25/2011, 11/19/2004, 12/12/2000, Additional history exists Depression Screening 10/28/2021 10/28/2020, 08/04/2020, 06/23/2020 Influenza Vaccine (#1) 2025 3, 02/23/2012, 03/25/2011, Additional history exists Hepatitis [...] last revised on 2019. Testing performed by: [facility], [address] [place] [address], [place]., [address] Blood specimen (specimen) 02/21/2020 11:46 AM CDT 02/21/2020 4:32 PM CDT Cleo Casper NP LAB MICROBIOLOGY - GENERAL ORDER LAVINIA Final Result [facility] [address] [facility] Department [place] [address] from Last 3 Months or Most Recently Relevant to Health Maintenance Insurance [id number] [place] [address] [facility] Advance Directives For more information, please contact: [phone] * Full Code (Latest Code Status on File) Date Activated Date Inactivated Comments 01/20/2023 4:36 AM 01/20/2023 4:52 PM Care Teams Grid Caster Relationship Specialty Start Date End Date Shahriar, Carola Roberts NP [address] [place] [address] PCP - General Nurse Practitioner 07/19/22
--- OUTSIDE RECORDS SUMMARY | 2025-02-10 11:18 | XMS_ITS | Clinical Summary ---
Author Organization [facility] Address [address] [place] [id number] Care Team Providers Care Home Insurance Agent Name Role Phone Shahriar, Carloa LACKEY Primary Care Provider [phone] Allergies Active Allergy Reactions Criticality Noted Date [...] 4:01 PM CDT Height 165.1 cm (5' 5) 03/30/2024 4:01 PM CDT Body Mass Index [...] patient's age to complete this topic Insurance Care Teams Home Insurance Agent Relationship Specialty Start Date End Date Carola Bess APNP PCP - General NURSE PRACTITIONER 03/30/24
--- NOTE | 2025-02-10 11:43 | ED.PREGNANCY ---
HPI - General Chief complaint: Vaginal Bleeding Stated complaint: , vag bleeding Time Seen by Provider: 02/10/25 11:22 History of Present Illness HPI Narrative: Patient is a 24-year-old female who presents to the ER with vaginal bleeding and abdominal cramping during . She reports she has a history of irregular periods. Patient reports she has been having intermittent spotting over the past week. She took a test on Tuesday morning and it was positive. Patient endorses a history of 3 pregnancies, with 1 in 1 spontaneous miscarriage. She denies any urinary symptoms, recent fevers, or back pain. Patient endorses intermittent headaches, intermittent dry heaving, and intermittent cramping. She denies any other medical history relevant to this ER visit. Related Data Allergies Allergy/AdvReac Type Severity Reaction Status Date / Time amoxicillin Allergy Swelling Verified 04/14/24 18:11 of Lip/Tongue/Throat Review of Systems Review of Systems: All systems reviewed & are unremarkable except as noted in HPI and below PMFSH Past Medical History Medical History History of streptococcal sore throat Hx of migraines Social History Social History Smoking status: Current every day smoker Tobacco type: e-cigarettes/vaping Alcohol intake: current Alcohol use details: social Substance use type: does not use Living arrangements: with family Gender identity (if verbalized by the patient): Female Exam Narrative: GENERAL: Well appearing, well-nourished, non-toxic, in no acute distress. HEAD: Normocephalic, atraumatic. NECK: Supple. No adenopathy, no masses. RESPIRATORY: Airway patent, respirations nonlabored. Clear to auscultation bilaterally, no rales, rhonchi, wheezing. CARDIOVASCULAR: Regular rate and rhythm without murmurs, rubs, or gallops. Peripheral pulses 2+ and equal bilaterally. ABDOMINAL: Soft, nontender, nondistended, no hepatosplenomegaly. Normoactive BS. MUSCULOSKELETAL: Moves all extremities. Strength/ROM intact without gross deformities. SKIN: Warm, dry, normal color. No rashes. NEURO: A&O X3. Speech clear. Cranial nerves II-XII intact. No ataxic movements. PSYCHIATRIC: Appropriate mood and affect. Normal interaction. MDM - OB/Uterine Contractions MDM Narrative Medical decision making narrative: Patient is a 24-year-old female who presents to the ER with vaginal bleeding and abdominal cramping during . She reports she has a history of irregular periods. Patient reports she has been having intermittent spotting over the past week. She took a test on Tuesday morning and it was positive. Patient endorses a history of 3 pregnancies, with 1 in 1 spontaneous miscarriage. She denies any urinary symptoms, recent fevers, or back pain. Patient endorses intermittent headaches, intermittent dry heaving, and intermittent cramping. She denies any other medical history relevant to this ER visit. Labs Ordered: CBC, CMP, UA, beta hCG, PTT, INR, Rh immunoglobulin Imaging Ordered: Ultrasound Ob Medications Ordered: Results: Patient's ultrasound indicates Questionable intrauterine gestational sac. Serial beta-hCG and follow recommended. Her beta hCG is 1574. Patient's urinalysis indicates she has a mild UTI. Diagnosis: Early , urinary tract infection Consults: OBGYN (outpatient, Dr. Emma Linares) Patient Education/Sh her red MDM: Results of lab work and imaging shared with patient. She has a very minimal UTI but will be given her 1st dose of antibiotics here in the ER. Patient strongly advised to maintain hydration status upon discharge and follow-up with her OBGYN for cereal hCG levels. She will be discharged home with a prescription for Keflex. Strict return precautions provided. Patient verbalized understanding and is in agreement with plan. Vital signs stable at time of discharge. All questions answered. Differential Diagnosis Differential diagnosis: Likely other (Threatened miscarriage, urinary tract infection, intrauterine gestational sac) Lab Data Attestation: I reviewed the patient's lab results. 02/10/25 11:53 02/10/25 11:53 Labs: Lab Results 02/10/25 02/10/25 Range/Units 11:53 14:16 WBC 9.1 (4.5-10.0) K/mm3 RBC 4.43 (4.2-5.4) M/mm3 Hgb 14.5 (12.0-15.0) g/dL Hct 41.7 (37.0-47.0) % MCV 94.1 (80-100) fl MCH 32.7 (26-34) pg MCHC 34.8 (32-36) g/dl RDW 11.6 (11.5-14.5) % Plt Count 238 (150-375) k/mm3 MPV 9.5 (7.4-10.4) fl Immature Gran % (Auto) 0.4 (0-0.5) % Neut % (Auto) 72.7 (45.5-73.1) % Lymph % (Auto) 19.5 (18.3-44.2) % [place] % (Auto) 6.7 (2.6-8.5) % Eos % (Auto) 0.2 (0-4.4) % Baso % (Auto) 0.5 (0.2-1.2) % Lymph # (Auto) 1.78 (0.9-3.2) K/mm3 [place] # (Auto) 0.6 (0.1-0.6) K/mm3 Eos # (Auto) 0.0 (0-0.3) K/mm3 Baso # (Auto) 0.1 (0.0-0.1) K/mm3 Abs Immat Gran (auto) 0.04 H (0.00-0.031) K/mm3 Absolute Neuts (auto) 6.6 (1.3-6.7) K/mm3 Absolute Nucleated RBC 0.000 (0.0-0.012) K/mm3 Nucleated RBC % 0.0 (0.0-0.2) % PT 14.2 (11.1-14.7) Seconds INR 1.1 APTT 27.7 (22.3-36.8) Seconds Sodium 139 (137-145) mmol/L Potassium 3.8 (3.4-5.0) mmol/L Chloride 106 (98-107) mmol/L Carbon Dioxide 23 (22-30) mmol/L Anion Gap 10 (4-12) mmol/L BUN 12 (7-17) mg/dL Creatinine 0.73 (0.7-1.0) mg/dL Estim Creat Clear Calc 92 ml/min Estimated GFR > 60 (59 - ) Glucose 101 (65-110) mg/dL Calcium 9.3 (8.4-10.2) mg/dL Total Bilirubin 0.7 (0.2-1.3) mg/dL AST 22 (14-36) U/L ALT 15 (6-35) U/L Alkaline Phosphatase 59 (38-126) U/L Total Protein 7.7 (6.3-8.2) g/dL Albumin 4.7 (3.5-5.1) g/dL Beta HCG, Quant 1574.90 mIU/ML Urine Color Yellow (Yellow) Urine Appearance Sl cloudy (Clear) Urine pH 7.0 (5.0-9.0) Ur Specific Anthon 1.025 (1.001-1.035) Urine Protein Negative (Negative) mg/dL Urine Glucose (UA) Negative (Negative) mg/dL Urine Ketones Negative (Negative) mg/dL Ur Blood (Man) 2+ H (Negative) Urine Nitrate Negative (Negative) Urine Bilirubin Negative (Negative) Urine Urobilinogen 0.2 (<2.0) mg/dL Add Ur Microanalysis Reviewed Leukocyte Esterase Rfl Negative (Negative) FABIENNE/UL Urine RBC 0-2 (0-2) /hpf Urine WBC 6-10 H (0-3) /hpf Ur Squamous Epith Cells Few (Few) /hpf Urine Bacteria None seen /hpf Urine Casts 0-2 Blood Type A Positive Antibody Screen Negative Screen Not Reportable Baby's Blood Type Not Reportable Baby's MIAH Not Reportable Doses of RhIg Required 0 Imaging Data Attestation: I personally reviewed and interpreted this imaging study as follows: Radiologist's impression: Impressions Obstetrics Ultrasound 02/10/25 13:33 Impression: 1. Questionable intrauterine gestational sac. Serial beta-hCG and follow recommended Discharge Plan Discharge Clinical Impression: Threatened , at early stage, Urinary tract infection Patient Disposition: Home Condition: Stable Instructions: Antibiotic Form, Urinary Tract Infection in (ED) Additional Instructions: Please return to the ER with any worsening symptoms. Follow-up with your OBGYN as soon as possible. Take all medications as prescribed, including regularly scheduled medications. Complete your full dose of antibiotics. Please remember to drink lots of water. Patient Language: Cameroonian Prescriptions: New cephalexin 500 mg capsule 500 mg PO Q8H 7 Days Qty: 21 0RF No Action dexamethasone 4 mg tablet 8 mg PO ONCE Qty: 2 0RF Rx Instructions: one time dose cephalexin 500 mg capsule 500 mg PO Q12H Qty: 14 0RF Follow-up/Referrals: Carlos Molina MD [Physician, CANAL BOAT CAPTAIN] Referral Note: OBGYN PHYSICIAN,PERINATAL INSTRUCTOR [Primary Care Provider, Internal Medicine] Time of Disposition: 15:47
[2025-02-10 12:03] LABS: Hematocrit 41.7 % (37.0-47.0); Hemoglobin 14.5 g/dL (12.0-15.0); Immature Granulocyte Percent A 0.4 % (0-0.5); Lymphocytes Absolute Auto 1.78 K/mm3 (0.9-3.2); Mean Corpuscular HGB Conc 34.8 g/dl (32-36); Mean Corpuscular Hemoglobin 32.7 pg (26-34); Mean Corpuscular Volume 94.1 fl (80-100); Nucleated Red Blood Cells Absolute Auto 0.000 K/mm3 (0.0-0.012); Nucleated Red Blood Cells Perc 0.0 % (0.0-0.2); Platelet Count Result 238 k/mm3 (150-375); Red Blood Count 4.43 M/mm3 (4.2-5.4); White Blood Count 9.1 K/mm3 (4.5-10.0)
[2025-02-10 12:14] LABS: Alanine Aminotransferase 15 U/L (6-35); Albumin Level 4.7 g/dL (3.5-5.1); Alkaline Phosphatase 59 U/L (38-126); Anion Gap 10 mmol/L (4-12); Aspartate Amino Transferase 22 U/L (14-36); Bilirubin,Total 0.7 mg/dL (0.2-1.3); Blood Urea Nitrogen 12 mg/dL (7-17); Calcium 9.3 mg/dL (8.4-10.2); Carbon Dioxide 23 mmol/L (22-30); Chloride 106 mmol/L (98-107); Estimated CRCL calculation 92 ml/min; Estimated Glomerular Filt Rate > 60; Glucose 101 mg/dL (65-110); Potassium 3.8 mmol/L (3.4-5.0); Sodium 139 mmol/L (137-145); Total Protein 7.7 g/dL (6.3-8.2)
[2025-02-10 12:18] LABS: INR 1.1; Prothrombin Time 14.2 Seconds (11.1-14.7)
[2025-02-10 12:19] LABS: Partial Thromboplastin Time 27.7 Seconds (22.3-36.8)
[2025-02-10 12:30] LABS: Beta HCG Quantitative 1574.90 mIU/ML
[2025-02-10 14:36] LABS: Appearance Urine Sl Cloudy (Clear); Specific Grav Ur 1.025 (1.001-1.035)
[2025-02-10 14:37] LABS: Glucose Urine UA Negative (Negative); Nitrate Urine Negative (Negative)
[2025-02-10 14:38] LABS: Add Urine Microscopic? YES; Leukocyte Esterase Ur Negative LEU/UL (Negative)
[2025-02-10 14:47] LABS: Need Manual Microscopic Reviewed; Non Pathogenic Casts 0-2
[2025-02-10] MEDS: ACETAMINOPHEN 500 MG TABLET 1000 MG PO (14:49)
[2025-02-10] MEDS: CEPHALEXIN 500 MG CAPSULE PO (16:22)
== END 2025-02-10 16:26 | disposition home or self-care (01) ==
PROVIDERS: Emergency Provider Registered Nurse
DX: O20.0 Threatened abortion (principal); Z3A.00 Weeks of gestation of pregnancy not specified; O23.40 Unspecified infection of urinary tract in pregnancy, unspecified trimester; N39.0 Urinary tract infection, site not specified
CPT/HCPCS: 36415; 76801; 76817; 80053; 81001; 84702; 85025; 85461; 85610; 85730; 86850; 86900; 86901; 87086; 99284; A9270

== ENCOUNTER 2025-02-18 17:56 | Emergency (ER) | payer SELFPAY ==
--- NOTE | ~2025-02-18 | US_ITS ---
EXAM/PROCEDURE: US OB <=14 wk fetus w TV - 02/18/2025 20:00 CDT HISTORY: 24 years old Female with vaginal bleeding and cramping during COMPARISON: None available. TECHNIQUE: Multiple transvaginal images were obtained. FINdINGS: There is a single, live, intrauterine gestation with a heart rate of 122 bpm. The crown-rump length is 3.7 mm, which is equivalent to a 6 week, 0 day gestation. This gives an estimated date of delivery of 10/14/2025. An unremarkable yolk sac is seen. The gestational sac is unremarkable. There is no myometrial abnormality. The ovaries appear unremarkable. No significant free fluid is seen. IMPRESSION: Single live embryo with estimated date of delivery of 10/14/2025. Reviewed, dictated and finalized at location N.
[2025-02-18 18:34] VITALS: BP 127/83; PULSE 102; RESP 16; TEMP 36.8; O2SAT 98
--- OUTSIDE RECORDS SUMMARY | 2025-02-18 19:14 | XMS_ITS | Clinical Summary ---
Author Organization [facility] Address [address] [place] [address] Care Team Providers Care Title Manager Name Role Phone Unavailable Primary Care Provider Unavailabl e Source Comments [facility],non-owned Affiliates and Associated Physician Practices is amultiple site organization consisting of ambulatory clinics and hospital sitesin [place], [place], [place] and [place]. This disclosure is being madepursuant to the Care Everywhere program and may not contain all information available regarding this patient. Last updated 18.[facility] Allergies Active Allergy Reactions Criticality Noted Date [...] Probe Negative Negative 02/21/2020 12:23 PM CDT [facility] GC Amplified Probe Negative Negative 02/21/2020 12:23 PM CDT [facility] Microbiology ENTIRE VAGINA / Unknown Collection / Unknown 02/20/2020 11:52 AM CDT 02/20/2020 11:52 AM CDT Narrative [facility] MICROBIOLOG[facility] - 02/21/2020 12:23 PM CDT Results based on detection/no detection of ribosomal RNA by amplified method. Suzan Washington WARP TYING MACHINE TENDER-SPEEDER OPERATOR LAB - MICROBIOLOGY ORDERABLES Final Result [facility] MICROBIOLOG[facility] [address] [place] [address], [facility] [phone] from Last 3 Months or Most Recently Relevant to Health Maintenance Insurance MEDICAID - OUT OF STATE
--- OUTSIDE RECORDS SUMMARY | 2025-02-18 19:14 | XMS_ITS | Clinical Summary ---
Author Organization [facility] Address [address] [place] [address] Phone Care Team Providers Care Engagement Specialist Name Role Phone Provider, None Primary Care [...] 8:50 AM CDT Height 165.1 cm (5' 5) 09/19/2019 8:50 AM CDT Body Mass Index 21.63 09/19/2019 8:50 AM CDT Plan of Treatment Health Maintenance Due Date Last Done Comments Hepatitis C Virus (HCV) Screening 1999 Influenza Immunization (#1) 2025 10/0 06/2012, 02/23/2012, 03/25/2011, Additional history exists SARS-COV-2 Immunization ( season) 2025 Respiratory Syncytial Virus (RSV) Immunization (Adult) (1 [...] age to complete this topic Insurance [facility] [place] [address] [place] [address] Care Teams Engagement Specialist Relationship Specialty Start Date End Date Provider, None [place] PCP - General 07/13/18
--- OUTSIDE RECORDS SUMMARY | 2025-02-18 19:14 | XMS_ITS | Clinical Summary ---
Author Organization [facility] Address [address] [place] [address] Care Team Providers Care Protection Engineer Name Role Phone Shahriar, Carola LACKEY Primary Care Provider [phone] Allergies Active Allergy Reactions Criticality Noted Date [...] Cancer Screening 02/19/2023 COVID-19 Vaccine ( season) 2025 Hepatitis B Vaccines Completed 05/05/2000, 1999, 1999 [...] to complete this topic Insurance Care Teams Protection Engineer Relationship Specialty Start Date End Date Carola Bess APNP PCP - General NURSE PRACTITIONER 03/30/24
--- OUTSIDE RECORDS SUMMARY | 2025-02-18 19:14 | XMS_ITS | Clinical Summary ---
Author Organization [facility] Address [address] [place] [address] Care Team Providers Care Zinc Plating Machine Operator Name Role Phone Carola Bess NP Primary Care Provider [phone] Allergies Active Allergy Reactions Criticality Noted Date [...] disease) Assessment & Plan (08/06/2020 11:58 AM SPINNERET CLEANER): - doing well with OTC omeprazole 40 mg daily - continue with current therapy, will switch her to pepcid down the road Irritable bowel syndrome wit h both constipation and diarrhea 08/04/2020 Assessment & Plan (08/06/2020 11:59 AM SPINNERET CLEANER): - new diagnosis, symptoms consistent with IBS [...] amitriptyline Assessment & Plan (08/06/2020 12:00 PM SPINNERET CLEANER): - hx of depression that is still [...] weeks Assessment & Plan (06/24/2020 6:06 AM SPINNERET CLEANER): - patient on interview has ongoing depression - no SI or HI, no visual or auditory hallucinations - appears that she has good social support and lives with her brother - will start her on Zoloftt 50 mg once daily - follow up in 6 weeks Hemorrhoids 06/24/2020 Assessment & Plan (06/24/2020 6:07 AM SPINNERET CLEANER): - recommend that she start taking fiber [...] 13? Assessment & Plan (06/24/2020 6:09 AM SPINNERET CLEANER): Social History Tobacco Use Smoking Status Current Every Day Smoker Packs/day: 0.15 Types: Cigarettes Smokeless Tobacco Never Used Discussed smoking cessation with patient Patient understands the risks of smoking She has some depression as well so will opt for use of wellbutrin as it may also help with smoking cessation. Herpes simplex vulvovaginitis 06/23/2020 Assessment & Plan (06/24/2020 6:05 AM SPINNERET CLEANER): - follows with OBGYN - has hx [...] on file Legal Sex Female 2:22 PM SPINNERET CLEANER Gender Identity Not on file Sexual Orientation [...] last revised on 2019. Testing performed by: , [address] [place] [address], [place]., [address] Blood specimen (specimen) 02/21/2020 11:46 AM CDT 02/21/2020 4:32 PM CDT Cleo Casper NP LAB MICROBIOLOGY - GENERAL ORDER LAVINIA Final Result [facility] Department [place] [address] from Last 3 Months or Most Recently Relevant to Health Maintenance Insurance [id number] [place] [address] [facility] Advance Directives For more information, please contact: [phone] * Full Code (Latest Code Status on File) Date Activated Date Inactivated Comments 01/20/2023 4:36 AM 01/20/2023 4:52 PM Care Teams Zinc Plating Machine Operator Relationship Specialty Start Date End Date Shahriar, Carola Roberts NP [address] [place] [address] PCP - General Nurse Practitioner 07/19/22
--- NOTE | 2025-02-18 19:48 | PC.NURSE ---
Pt. to ultrasound.
[2025-02-18 19:55] LABS: Hematocrit 38.5 % (37.0-47.0); Hemoglobin 13.5 g/dL (12.0-15.0); Immature Granulocyte Percent A 0.4 % (0-0.5); Lymphocytes Absolute Auto 2.49 K/mm3 (0.9-3.2); Mean Corpuscular HGB Conc 35.1 g/dl (32-36); Mean Corpuscular Hemoglobin 32.7 pg (26-34); Mean Corpuscular Volume 93.2 fl (80-100); Nucleated Red Blood Cells Absolute Auto 0.000 K/mm3 (0.0-0.012); Nucleated Red Blood Cells Perc 0.0 % (0.0-0.2); Platelet Count Result 229 k/mm3 (150-375); Red Blood Count 4.13 M/mm3 (4.2-5.4); White Blood Count 10.6 K/mm3 (4.5-10.0)
[2025-02-18 20:04] LABS: Add Urine Microscopic? YES; Alanine Aminotransferase 15 U/L (6-35); Albumin Level 4.7 g/dL (3.5-5.1); Alkaline Phosphatase 52 U/L (38-126); Anion Gap 10 mmol/L (4-12); Appearance Urine Clear (Clear); Aspartate Amino Transferase 18 U/L (14-36); Bilirubin,Total 0.4 mg/dL (0.2-1.3); Blood Urea Nitrogen 11 mg/dL (7-17); Calcium 9.4 mg/dL (8.4-10.2); Carbon Dioxide 23 mmol/L (22-30); Chloride 105 mmol/L (98-107); Estimated CRCL calculation 98 ml/min; Estimated Glomerular Filt Rate > 60; Glucose 103 mg/dL (65-110); Glucose Urine UA Negative (Negative); Leukocyte Esterase Ur Trace LEU/UL (Negative); Nitrate Urine Negative (Negative); Non Pathogenic Casts 0-2; Potassium 3.6 mmol/L (3.4-5.0); Sodium 138 mmol/L (137-145); Specific Grav Ur 1.019 (1.001-1.035); Total Protein 7.7 g/dL (6.3-8.2)
[2025-02-18 20:07] LABS: INR 1.2; Prothrombin Time 14.7 Seconds (11.1-14.7)
[2025-02-18 20:08] LABS: Partial Thromboplastin Time 29.8 Seconds (22.3-36.8)
[2025-02-18 20:10] LABS: BEDSIDEPREGUCG Positive (Negative)
--- NOTE | 2025-02-18 20:16 | ED_ITS ---
HPI - General Chief complaint: Vaginal Bleeding Stated complaint: preg vag bleeding Time Seen by Provider: 02/18/25 18:44 History of Present Illness HPI Narrative: Patient is a 24-year-old female presents to the ER with ongoing complaints vaginal bleeding and abdominal pain. She was seen in the ER for the same concerns approximately one week ago. Patient reports she has been having intermittent spotting over the past two weeks. She took a test approximately ten days ago and it was positive. Patient endorses a history of 3 pregnancies, with 1 in 1 spontaneous miscarriage. She denies any urinary symptoms, recent fevers, or back pain. Patient endorses intermittent headaches, intermittent dry heaving, and intermittent cramping. She denies any other medical history relevant to this ER visit. Related Data Allergies Allergy/AdvReac Type Severity Reaction Status Date / Time Penicillins Allergy Severe Anaphylaxis Verified 02/18/25 18:39 amoxicillin Allergy Swelling Verified 02/18/25 18:39 of Lip/Tongue/Throat Review of Systems 2 Review of Systems: All systems reviewed & are unremarkable except as noted in HPI and below PMFSH Past Medical History Medical History History of streptococcal sore throat Hx of migraines Social History Social History Smoking status: Current every day smoker Tobacco type: e-cigarettes/vaping Alcohol intake: current Alcohol use details: social Substance use type: does not use Living arrangements: with family Gender identity (if verbalized by the patient): Female Exam 2 Narrative: GENERAL: Well appearing, well-nourished, non-toxic, in no acute distress. HEAD: Normocephalic, atraumatic. NECK: Supple. No adenopathy, no masses. RESPIRATORY: Airway patent, respirations nonlabored. Clear to auscultation bilaterally, no rales, rhonchi, wheezing. CARDIOVASCULAR: Regular rate and rhythm without murmurs, rubs, or gallops. Peripheral pulses 2+ and equal bilaterally. ABDOMINAL: Soft, nontender, nondistended, no hepatosplenomegaly. Normoactive BS. MUSCULOSKELETAL: Moves all extremities. Strength/ROM intact without gross deformities. SKIN: Warm, dry, normal color. No rashes. NEURO: A&O X3. Speech clear. Cranial nerves II-XII intact. No ataxic movements. PSYCHIATRIC: Appropriate mood and affect. Normal interaction. Course Vital Signs Vital signs: Vital Signs Temperature 36.8 C 02/18/25 18:34 Pulse Rate 102 H 02/18/25 18:34 Respiratory Rate 16 02/18/25 18:34 Blood Pressure 127/83 02/18/25 18:34 Pulse Oximetry 98 02/18/25 18:34 Oxygen Delivery Room Air 02/18/25 18:34 Temperature 36.8 C 02/18/25 18:34 Pulse Rate 102 H 02/18/25 18:34 Respiratory Rate 16 02/18/25 18:34 Blood Pressure 127/83 02/18/25 18:34 Pulse Oximetry 98 02/18/25 18:34 Oxygen Delivery Room Air 02/18/25 18:34 MDM - OB/Uterine Contractions MDM Narrative Medical decision making narrative: Patient is a 24-year-old female presents to the ER with ongoing complaints vaginal bleeding and abdominal pain. She was seen in the ER for the same concerns approximately one week ago. Patient reports she has been having intermittent spotting over the past two weeks. She took a test approximately ten days ago and it was positive. Patient endorses a history of 3 pregnancies, with 1 in 1 spontaneous miscarriage. She denies any urinary symptoms, recent fevers, or back pain. Patient endorses intermittent headaches, intermittent dry heaving, and intermittent cramping. She denies any other medical history relevant to this ER visit. * patient declined vaginal exam Labs Ordered: CBC, CMP, UA, PTT, INR, beta hCG, GC chlamydia swab, trich swab Imaging Ordered: Ultrasound Ob Medications Ordered: None necessary Results: Patient's CBC indicates a white blood cell count of 10.6, RBCs of 4.13. Her coags were within normal limits. Patient's chemistry indicates a creatinine of 0.68. Her beta hCG was 13,875. Patient's urinalysis indicates she still has a slight UTI but patient reports she did not starting her antibiotics till Tuesday, 2 days ago. Diagnosis: Vaginal bleeding during , urinary tract infection Consults: OBGYN (outpatient), SIF scheduled March 08, 2025 Patient Education/Shared MDM: Results of lab work done and imaging shared with patient. Patient strongly advised to maintain hydration status upon discharge and follow-up with her OBGYN as scheduled. She will not be discharged home with any new prescriptions. Strict return precautions provided. Patient verbalized understanding and is in agreement with plan. Vital signs stable at time of discharge. All questions answered. Differential Diagnosis Differential diagnosis: Likely other (Threatened , urinary tract infection, vaginal bleeding) Lab Data Attestation: I reviewed the patient's lab results. 02/18/25 19:43 02/18/25 19:43 Labs: Lab Results 02/18/25 02/18/25 Range/Units 19:43 20:08 WBC 10.6 H (4.5-10.0) K/mm3 RBC 4.13 L (4.2-5.4) M/mm3 Hgb 13.5 (12.0-15.0) g/dL Hct 38.5 (37.0-47.0) % MCV 93.2 (80-100) fl MCH 32.7 (26-34) pg MCHC 35.1 (32-36) g/dl RDW 11.5 (11.5-14.5) % Plt Count 229 (150-375) k/mm3 MPV 9.6 (7.4-10.4) fl Immature Gran % (Auto) 0.4 (0-0.5) % Neut % (Auto) 68.6 (45.5-73.1) % Lymph % (Auto) 23.6 (18.3-44.2) % Stevens % (Auto) 6.4 (2.6-8.5) % Eos % (Auto) 0.4 (0-4.4) % Baso % (Auto) 0.6 (0.2-1.2) % Lymph # (Auto) 2.49 (0.9-3.2) K/mm3 Stevens # (Auto) 0.7 H (0.1-0.6) K/mm3 Eos # (Auto) 0.0 (0-0.3) K/mm3 Baso # (Auto) 0.1 (0.0-0.1) K/mm3 Abs Immat Gran (auto) 0.04 H (0.00-0.031) K/mm3 Absolute Neuts (auto) 7.3 H (1.3-6.7) K/mm3 Absolute Nucleated RBC 0.000 (0.0-0.012) K/mm3 Nucleated RBC % 0.0 (0.0-0.2) % PT 14.7 (11.1-14.7) Seconds INR 1.2 APTT 29.8 (22.3-36.8) Seconds Sodium 138 (137-145) mmol/L Potassium 3.6 (3.4-5.0) mmol/L Chloride 105 (98-107) mmol/L Carbon Dioxide 23 (22-30) mmol/L Anion Gap 10 (4-12) mmol/L BUN 11 (7-17) mg/dL Creatinine 0.68 L (0.7-1.0) mg/dL Estim Creat Clear Calc 98 ml/min Estimated GFR > 60 (59 - ) Glucose 103 (65-110) mg/dL Calcium 9.4 (8.4-10.2) mg/dL Total Bilirubin 0.4 (0.2-1.3) mg/dL AST 18 (14-36) U/L ALT 15 (6-35) U/L Alkaline Phosphatase 52 (38-126) U/L Total Protein 7.7 (6.3-8.2) g/dL Albumin 4.7 (3.5-5.1) g/dL Beta HCG, Quant 17354.00 mIU/ML Urine Color Yellow (Yellow) Urine Appearance Clear (Clear) Urine pH 7.0 (5.0-9.0) Ur Specific [place] 1.019 (1.001-1.035) Urine Protein Negative (Negative) mg/dL Urine Glucose (UA) Negative (Negative) mg/dL Urine Ketones Negative (Negative) mg/dL Ur Blood (Man) Negative (Negative) Urine Nitrate Negative (Negative) Urine Bilirubin Negative (Negative) Urine Urobilinogen 0.2 (<2.0) mg/dL Leukocyte Esterase Rfl Trace H (Negative) FABIENNE/UL Urine RBC 0-2 (0-2) /hpf Urine WBC 6-10 H (0-3) /hpf Ur Squamous Epith Cells Occasional (Few) /hpf Urine Bacteria None seen /hpf Urine Casts 0-2 POC Urine HCG, Qual Positive (Negative) C. trachomatis (PCR) Not detected (NOT DETECTE) N. gonorrhoeae (PCR) Not detected (NOT DETECTE) T. vaginalis (PCR) Not detected (NOT DETECTE) Discharge Plan Discharge Clinical Impression: Vaginal bleeding, Threatened , Urinary tract infection affecting care of mother in first trimester, antepartum Patient Disposition: Home Condition: Stable Instructions: Antibiotic Form, (ED) Additional Instructions: Please return to the ER with any worsening symptoms. Follow-up with OBGYN as planned. Take all medications as prescribed, including regularly scheduled medications. Complete your full dose of antibiotics. Patient Language: Maori Prescriptions: No Action dexamethasone 4 mg tablet 8 mg PO ONCE Qty: 2 0RF Rx Instructions: one time dose cephalexin 500 mg capsule 500 mg PO Q12H Qty: 14 0RF cephalexin 500 mg capsule 500 mg PO Q8H 7 Days Qty: 21 0RF Follow-up/Referrals: PHYSICIAN,C[facility]TER AND PA[employer] [Primary Care Provider, Internal Medicine] Stand Alone Forms: Work/School Release IP Time of Disposition: 22:46
[2025-02-18 20:20] LABS: Beta HCG Quantitative 13875.00 mIU/ML
[2025-02-18 21:10] LABS: Trichomonas Vag PCR NOT DETECTED (NOT DETECTE)
[2025-02-18 22:58] VITALS: BP 144/72; PULSE 68; RESP 16; TEMP 37; O2SAT 100
== END 2025-02-18 23:01 | disposition home or self-care (01) ==
PROVIDERS: Emergency Provider Registered Nurse
DX: O20.0 Threatened abortion (principal); O23.41 Unspecified infection of urinary tract in pregnancy, first trimester; N39.0 Urinary tract infection, site not specified; Z3A.00 Weeks of gestation of pregnancy not specified; Z11.3 Encounter for screening for infections with a predominantly sexual mode of transmission
CPT/HCPCS: 36415; 76801; 76817; 80053; 81001; 81025; 84702; 85025; 85610; 85730; 87086; 87491; 87591; 87661; 99284

== ENCOUNTER 2025-03-08 11:54 | Emergency (ER) | payer OTHER, SELFPAY ==
[2025-03-08 11:57] VITALS: BP 114/64; PULSE 88; RESP 16; TEMP 36.3; O2SAT 99
--- NOTE | 2025-03-08 11:57 | ED_ITS ---
HPI - URI/Sore Throat General Chief Complaint: Upper Respiratory Infection Stated Complaint: Sore Throat/Headache/Nasal Congestion Time Seen by Provider: 03/08/25 11:57 Source: patient Mode of arrival: ambulatory Limitations: no limitations History of Present Illness HPI Narrative: Andrés is a 24-year-old female patient presenting to the clinic today with complaints of sore throat, headache, left ear pain, and nasal congestion x1 day. She reports symptoms started yesterday. No known fevers but has been feeling hot and cold. Denies any chest pain or shortness of breath. Rates her pain currently a /. Has not taken any medications for her symptoms. MD elicited complaint: sore throat and nasal congestion Related Data Home Medications ?Medication ?Instructions ?Recorded ?Confirmed ?Last Taken ?Type No Home Medications 03/08/25 03/08/25 U nknown History Allergies Allergy/AdvReac Type Severity Reaction Status Date / Time Penicillins Allergy Severe Anaphylaxis Verified 03/08/25 12:11 amoxicillin Allergy Swelling Verified 03/08/25 12:11 of Lip/Tongue/Throat Review of Systems Review of Systems: Pertinent positives per HPI. Patient denies any fever, chills, rash, visual arnaldo nges, dizziness, cough, shortness of breath, chest pain, palpitations, nausea, vomiting, diarrhea, constipation, abdominal pain, or any urinary issues. PMFSH Past Medical History Medical History History of streptococcal sore throat Hx of migraines Social History Social History Smoking status: Current every day smoker Tobacco type: e-cigarettes/vaping Alcohol intake: current Alcohol use details: social Substance use type: does not use Living arrangements: with family Gender identity (if verbalized by the patient): Female Comments At the time of my signature, I reviewed and agree with the nursing past medical, surgical, social, and family history. There is no relevant family history pertinent to the patient complaint. Exam Narrative: General: Well-developed, well nourished, in no apparent distress Head: Normocephalic, atraumatic Eyes: Pupils equally round and reactive to light bilaterally, EOM intact, sclera and conjunctive clear, no discharge, lids normal Ears: TMs intact and congested, ear canals clear, no drainage, grossly hearing normal. Nose: Nares patent, clear nasal discharge, mild inflammation, no sinus t enderness. Mouth: Oral pharynx med without lesions or masses, good dentition, MMM. Postnasal drip Neck: Supple, trachea midline, no enlargement of anterior or posterior cervical nodes, no thyroid masses or goiter palpable. Cardio: Regular rate and rhythm, s1 and s2 normal, no murmur appreciated. Resp: Clear to auscultation bilaterally, no rhonchi, rales, wheezing or rubs Course Course Emergency Course: Portions of this record may have been created with voice recognition software. Level of Care: Express Care Visit Vital Signs Vital signs: Vital Signs Temperature 36.3 C L 03/08/25 11:57 Pulse Rate 88 03/08/25 11:57 Respiratory Rate 16 03/08/25 11:57 Blood Pressure 114/64 03/08/25 11:57 Pulse Oximetry 99 03/08/25 11:57 Oxygen Delivery Room Air 03/08/25 11:57 Temperature 36.3 C L 03/08/25 11:57 Pulse Rate 88 03/08/25 11:57 Respiratory Rate 16 03/08/25 11:57 Blood Pressure 114/64 03/08/25 11:57 Pulse Oximetry 99 03/08/25 11:57 Oxygen Delivery Room Air 03/08/25 11:57 Vital signs reviewed MDM - URI/Sore Throat MDM Narrative Medical decision making narrative: At the time of visit patient is resting comfortably on the exam table. Patient appears to be nontoxic. complaints of sore throat, headache, left ear pain, and nasal congestion x1 day. She reports symptoms started yesterday. No known fevers but has been feeling hot and cold. Denies any chest pain or shortness of breath. Rates her pain currently a 7/10. Has not taken any medications for her symptoms. On exam patient has clear nasal drainage, bilateral TMs intact and congested, oral pharynx mildly red with postnasal drip, no cervical lymphadenopathy, lung sounds are clear, heart rates regular rate rhythm Plan: I suspect patient has URI/pharyngitis. Work note was given. Supportive measures were discussed with the patient and they voiced understanding discharge instructions and agrees to treatment plan. Return precautions reviewed Differential Diagnosis Differential diagnosis: Likely upper respiratory infection, otitis media, sinusitis, viral infection, bronchitis, influenza, pharyngitis and other (COVID) Lab Data Labs: Lab Results 03/08/25 03/08/25 Range/Units 12:09 12:17 POC Influenza A Ag Negative (Negative) POC Influenza B Ag Negative (Negative) POC SARS CoV-2 Ag Negative (Negative) POC Grp A Strep Screen Negative (Negative) Discharge Plan Discharge Clinical Impression: Upper respiratory infection Qualifiers: URI type: unspecified URI Qualified Code(s): J06.9 - Acute upper respiratory infection, unspecified Pharyngitis Qualifiers: Pharyngitis/tonsillitis etiology: unspecified etiology Qualified Code(s): J02.9 - Acute pharyngitis, unspecified Patient Disposition: Home Condition: Stable Instructions: Antibiotic Form, Pharyngitis (ED), Cold Symptoms (ED) Additional Instructions: COVID, influenza, and strep test were all negative in the clinic today. We will send strep for culture if this comes back positive we will contact you in place you on antibiotics at that time. May take DayQuil/NyQuil for cold/flu symptoms as per bottle directions Increase fluids and stay well hydrated May take Tylenol or motrin as directed on bottle for pain/fever May use Flonase 1 spray in each nare daily May take OTC antihistamines such as Zyrtec or Claritin daily as directed on bottle May apply Vicks vapor rub to chest to open sinuses Sinus rinses for congestion Cepacol spray, cough drops, throat lozenges, warm tea with honey/lemon, gargle salt water to soothe throat BRAT diet for diarrhea Clear liquids x 24 hours then advance as tolerated for nausea/vomiting Go to the ED if you develop a worsening in your condition- high fever not controlled by Tylenol or Motrin, dehydration, weakness, lethargy, shortness of breath, or chest pain. Follow up with your PCP in 3-5 days if symptoms persist. Patient Language: Portuguese Prescriptions: No Action No Home Medications Follow-up/Referrals: Bess,Carola Garcia APN [Primary Care Provider, Unknown] Stand Alone Forms: Work/School Release IP Time of Disposition: 12:26 Quality NIHSS Nursing Documentation ED NIHSS nursing documentation: reviewed/agree
--- OUTSIDE RECORDS SUMMARY | 2025-03-08 11:57 | XMS_ITS | Clinical Summary ---
Author Organization [facility] Address [address] [place] [address] Phone Care Team Providers Care Dispensing And Measuring Optician Name Role Phone Provider, None Primary Care [...] age to complete this topic Insurance [facility] [place] [address] [place] [address] Care Teams Dispensing And Measuring Optician Relationship Specialty Start Date End Date Provider, None [place] PCP - General 07/13/18
--- OUTSIDE RECORDS SUMMARY | 2025-03-08 11:57 | XMS_ITS | Clinical Summary ---
Author Organization [facility] Address [address] [place] [address] Care Team Providers Care Supervisor Vacuum Metalizing Name Role Phone Carola Bess NP Primary [...] disease) Assessment & Plan (08/06/2020 11:58 AM MERCURY RECOVERER): - doing well with OTC omeprazole 40 mg daily - continue with current therapy, will switch her to pepcid down the road Irritable bowel syndrome wit h both constipation and diarrhea 08/04/2020 Assessment & Plan (08/06/2020 11:59 AM MERCURY RECOVERER): - new diagnosis, symptoms consistent with IBS [...] amitriptyline Assessment & Plan (08/06/2020 12:00 PM MERCURY RECOVERER): - hx of depression that is still [...] weeks Assessment & Plan (06/24/2020 6:06 AM MERCURY RECOVERER): - patient on interview has ongoing depression - no SI or HI, no visual or auditory hallucinations - appears that she has good social support and lives with her brother - will start her on Zoloftt 50 mg once daily - follow up in 6 weeks Hemorrhoids 06/24/2020 Assessment & Plan (06/24/2020 6:07 AM MERCURY RECOVERER): - recommend that she start taking fiber [...] 13? Assessment & Plan (06/24/2020 6:09 AM MERCURY RECOVERER): Social History Tobacco Use Smoking Status Current Every Day Smoker Packs/day: 0.15 Types: Cigarettes Smokeless Tobacco Never Used Discussed smoking cessation with patient Patient understands the risks of smoking She has some depression as well so will opt for use of wellbutrin as it may also help with smoking cessation. Herpes simplex vulvovaginitis 06/23/2020 Assessment & Plan (06/24/2020 6:05 AM MERCURY RECOVERER): - follows with OBGYN - has hx [...] on file Legal Sex Female 2:22 PM MERCURY RECOVERER Gender Identity Not on file Sexual Orientation [...] 2019. Testing performed by: [facility], [address] [place] [address], [place]., [address] Blood specimen (specimen) 02/21/2020 11:46 AM CDT 02/21/2020 4:32 PM CDT Cleo Casper NP LAB MICROBIOLOGY - GENERAL ORDER LAVINIA Final Result [facility] 1 [facility] Department [place] [address] from Last 3 Months or Most Recently Relevant to Health Maintenance Insurance [id number] [place] [address] [facility] Advance Directives For more information, please contact: [phone] * Full Code (Latest Code Status on File) Date Activated Date Inactivated Comments 01/20/2023 4:36 AM 01/20/2023 4:52 PM Care Teams Supervisor Vacuum Metalizing Relationship Specialty Start Date End Date Shahriar, Carola Roberts NP [address] [place] [address] PCP - General Nurse Practitioner 07/19/22
--- OUTSIDE RECORDS SUMMARY | 2025-03-08 11:57 | XMS_ITS | Clinical Summary ---
Author Organization [facility] Address [address] [place] [address] Care Team Providers Care Bullet Casting Operator Name Role Phone Shahriar, Carola LACKEY Primary Care Provider [phone] Allergies Active Allergy Reactions Criticality Noted Date [...] Screening 02/19/2023 COVID-19 Vaccine ( season) 2025 Influenza Adult (#1) 2025 03/06/2013, 02/23/2012, 03/25/2011, Additional history exists Hepatitis B Vaccines Completed 05/05/2000, 1999, 1999 [...] to complete this topic Insurance Care Teams Bullet Casting Operator Relationship Specialty Start Date End Date Carola Bess APNP PCP - General NURSE PRACTITIONER 03/30/24
--- OUTSIDE RECORDS SUMMARY | 2025-03-08 11:57 | XMS_ITS | Clinical Summary ---
Author Organization [facility] [employer] Address [address] [place] [address] Care Team Providers Care Bathhouse Keeper Name Role Phone Unavailable Primary Care Provider Unavailabl e Source Comments [facility] [employer],non-owned Affiliates and Associated Physician Practices is amultiple site organization consisting of ambulatory clinics and hospital sitesin [place], [place], [place] and [place]. This disclosure is being madepursuant to the Care Everywhere program and may not contain all information available regarding this patient. Last updated 18.[facility] [employer] Allergies Active Allergy Reactions Criticality Noted Date [...] Probe Negative Negative 02/21/2020 12:23 PM CDT [facility] MICROBIOLOG[facility] GC Amplified Probe Negative Negative 02/21/2020 12:23 PM CDT [facility] MICRO[facility]OLOG[facility] Microbiology ENTIRE VAGINA / Unknown Collection / Unknown 02/20/2020 11:52 AM CDT 02/20/2020 11:52 AM CDT Narrative [facility] MICROBIOLOGY - 02/21/2020 12:23 PM CDT Results based on detection/no detection of ribosomal RNA by amplified method. Suzan Washington [employer]ATION ENGINE[employer] SUPERVISOR LAB - MICROBIOLOGY ORDERABLES Final Result [facility] MICROBIOLOGY [address] [place] [address], [facility] [phone] from Last 3 Months or Most Recently Relevant to Health Maintenance Insurance MEDICAID - OUT OF STATE
[2025-03-08 12:18] LABS: EDSTREPNEGPOS1 Negative (Negative)
[2025-03-08 12:27] LABS: EDCOVIDSCREEN Negative (Negative); EDINFLUASCREEN Negative (Negative); EDINFLUBSCREEN Negative (Negative)
== END 2025-03-08 12:29 | disposition home or self-care (01) ==
PROVIDERS: Emergency Provider Nurse Practitioner Family; PCP Nurse Practitioner Family
DX: J06.9 Acute upper respiratory infection, unspecified (principal); J02.9 Acute pharyngitis, unspecified; Z20.822 Contact with and (suspected) exposure to COVID-19; F17.290 Nicotine dependence, other tobacco product, uncomplicated
CPT/HCPCS: 87081; 87426; 87804; 87880; 99213; G0463